=== PATIENT | female | born 1940 | race Caucasian/White ===

== ENCOUNTER → 2018-04-03 08:44 | Outpatient (CLI) | payer OTHER, MEDICARE, SELFPAY | PROVIDERS: Family Provider Family Medicine; PCP Family Medicine; Visit Provider Internal Medicine | DX: L59.8 Other specified disorders of the skin and subcutaneous tissue related to radiation (principal); L97.822 Non-pressure chronic ulcer of other part of left lower leg with fat layer exposed; S81.801A Unspecified open wound, right lower leg, initial encounter; I87.323 Chronic venous hypertension (idiopathic) with inflammation of bilateral lower extremity | CPT/HCPCS: 11042 ==

== ENCOUNTER → 2018-04-10 08:52 | Outpatient (CLI) | payer OTHER, SELFPAY | PROVIDERS: Family Provider Family Medicine; PCP Family Medicine; Visit Provider Internal Medicine | DX: L59.8 Other specified disorders of the skin and subcutaneous tissue related to radiation (principal); L97.822 Non-pressure chronic ulcer of other part of left lower leg with fat layer exposed; S81.801D Unspecified open wound, right lower leg, subsequent encounter; I87.323 Chronic venous hypertension (idiopathic) with inflammation of bilateral lower extremity | CPT/HCPCS: 11042 ==

== ENCOUNTER → 2018-04-10 14:11 | Outpatient (REF) | payer OTHER, SELFPAY | LOC: LAB 14:11 | PROVIDERS: Family Provider Family Medicine; PCP Family Medicine; Visit Provider Internal Medicine | DX: L08.9 Local infection of the skin and subcutaneous tissue, unspecified (principal) | CPT/HCPCS: 87070; 87077; 87186; 87205 ==

== ENCOUNTER → 2018-04-17 10:12 | Outpatient (CLI) | payer OTHER, SELFPAY | PROVIDERS: Family Provider Family Medicine; PCP Family Medicine; Visit Provider Internal Medicine | DX: L59.8 Other specified disorders of the skin and subcutaneous tissue related to radiation (principal); L97.822 Non-pressure chronic ulcer of other part of left lower leg with fat layer exposed; S81.801A Unspecified open wound, right lower leg, initial encounter; L03.116 Cellulitis of left lower limb | CPT/HCPCS: 11042 ==

== ENCOUNTER → 2018-04-24 08:46 | Outpatient (CLI) | payer OTHER, SELFPAY | PROVIDERS: Family Provider Family Medicine; PCP Family Medicine; Visit Provider Internal Medicine | DX: L59.8 Other specified disorders of the skin and subcutaneous tissue related to radiation (principal); L97.822 Non-pressure chronic ulcer of other part of left lower leg with fat layer exposed; L03.116 Cellulitis of left lower limb | CPT/HCPCS: 11042; 87070; 87075; 87077; 87147; 87186; 87205 ==

== ENCOUNTER → 2018-04-30 11:02 | Outpatient (CLI) | payer MEDICARE, OTHER, SELFPAY ==
--- NOTE | 2018-04-30 | OV.WND_ITS ---
Progress Note Details Patient Name: Paulina Troncoso Patient Number: [id number] PatientPatientDate: 04/30/2018 Clinician: Dannielle Galdamez Clinician Cosigner: Dorie Moyer Physician / Criminal Justice Professor: Anselmo Saxena SUBJECTIVE Chief Complaint This information was obtained from the patient Radiation wound to left leg. Second biopsy on left leg, now open wound Allergies NKDA HPI This information was obtained from the patient 04/30/18. Seen by Dr. Saxena. 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 Her wound culture grew MSSA and she reports significant diarrhea since starting the antibiotic. She does not report increased drainage from the ulcer. We had also planned to place a Grafix biologic skin substitute today if the infection appears to be resolved. 04/24/18. Seen by Dr. Saxena. 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 She does not report increased drainage however nor fevers or feeling unwell in general. 04/17/18. Seen by Dr. Saxena. 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 She does not report acute changes regarding the left lateral lower leg nor right lower leg venous ulcers. She also reports some increased swelling of the left lower leg but no fevers or feeling unwell in general. Her wound culture from last week grew pansensitive MSSA. 04/10/18. Seen by Dr. Saxena. The patient does not report increased drainage or pain associated with the left anterior lower leg soft tissue radiation ulcer, left lower lateral leg venous ulcer, nor right lower leg trauma wound since her last visit. 04/03/18. Seen by Dr. Saxena. The patient does not report increased drainage or pain associated with the left anterior lower leg soft tissue radiation ulcer, left lower lateral leg venous ulcer, nor right lower leg trauma wound since her last visit. 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 03/27/2018. Seen by Dr. Saxena. The patient reports a new trauma wound over the lateral left lower leg that occurred sometime in the last week but she is unsure of the mode of injury. She states its painful as well. 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 Of note, she stands for extended periods at work and wears a compression stocking on the left leg but not on the right. 03/20/18. Seen by Dr. Saxena. The patient reports some foul odor associated with the wound VAC dressing and had removed is about 2 days ago. 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 03/13/18. Seen by Dr. Saxena. 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 03/06/18. Seen by Dr. Saxena. 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 She does not report pain or increased drainage from the site nor adverse side effects from the antibiotics. 02/27/18. Seen by Dr. Saxena. 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 She does not report pain at the site nor fevers. 02/20/18. Dr. Saxena. 02/20/18. Seen by Dr. Saxena. The patient reports increased swelling and recurrence of erythema in the left lower leg soft tissue radiation ministerio-ulcer area. She doesn't report fevers or feeling unwell and completed a course of Augmentin recently that caused her to have significant GI symptoms. The patient is also scrubbing the site with soap in the shower despite our recommendations to not do so. 02/13/18. Seen by LAURA Daigle. The patient reports no increased drainage or pain to left lower leg soft tissue radiation ulcer. She was prescribed Augmentin for MSSA and Enterococcus faecalis positive wound culture and will complete this course tomorrow. 02/06/18. Seen by Dr. Saxena. The patient feels the left lower leg soft tissue radiation ulcer has stopped increasing in size since last week and since starting on Bactrim. She also feels the periulcer erythema and drainage have decreased. Her wound culture from last week grew MSSA and Enterococcus faecalis. She does not report adverse side effects of the antibiotics nor fevers or feeling unwell in general. 01/30/18. Seen by Fede Lyn PA-C. The patient reports that her ulcer became significantly larger 1-2 days after her last appointment. She was concerned it was a reaction to Medihoney and discontinued using it, and applied gentamicin instead. 01/20/18. Seen by Fede Lyn PA-C. The patient reports no increase in drainage from her radiation ulcer of the left lower leg. 01/01/18. Seen by Dr. Saxena. 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 12/16/17. Seen by Dr. Saxena. 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 11/28/17. Seen by Dr. Saxena. 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 11/21/17. Seen by Dr. Saxena. 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 She completed her course of Bactrim and continues to use topical gentamicin which is treating the Acinetobacter and MSSA positive wound culture. 11/07/17. Seen by Dr. Saxena. The patient reports significant improvement in terms of the left leg pain and drainage associated with the cellulitis and soft tissue radiation ulcer. She's completed a course of Bactrim and does not report adverse side effects 10/30/17. Seen by Dr. Saxena. The patient reports a significant improvement in terms of the left lower leg pain and drainage from the soft tissue radiation ulcer and surrounding cellulitis since starting on Bactrim for the recently cultured Acinetobacter and Staph positive wound culture. She does not report adverse side effects nor fevers or feeling unwell in general. 10/25/17. Seen by Dr. Saxena. The patient is new to our clinic and presents with a left lower leg non-healing radiation ulcer following treatment for a basal cell carcinoma in July. She reports continued burning and stinging of the ulcer as well as a painful circumferential rash around the leg with heavy drainage from the medial aspect. She was placed on Keflex 3 days ago and feels it may have been some modest improvement in terms of symptoms over the drainage continues to be significant. The leg is chronically swollen and she is trying to wear compression stockings however this is been difficult due to the discomfort. Past Medical History This information was obtained from the patient Patient has a medical history of: Knee replacement (bilateral) Basal cell carcinoma (right lower leg; 07/2017) Squamous cell carcinoma Chronic venous hypertension (bilateral; w/ inflammation) Complaints and Symptoms This information was obtained from the patient Patient complains of: General Notes: I have reviewed and concur with the Review of Systems and Past Family Social History documents completed by the clinician, I have reviewed and concur with the Wound Assessment document completed by the clinician Allergic/Immunologic: Frequent Rashes Integumentary (Hair/Skin/Nails): Open Sore Neurological: Loss of Protective Sensation Prior Wound History: Drainage, Erythema Patient denies complaints or symptoms related to: Cardiovascular (Central): Irregular heart beat Cardiovascular (Central/Peripheral): Intermittent Claudication Constitutional Symptoms (General Health): Chills, Fever Ear/Nose/Mouth/Throat: Hearing Loss / Aid Gastrointestinal (GI): Stomach/abdominal pain Hematologic/Lymphatic: Bleeding / Clotting Disorders, Bleeding Tendency Musculoskeletal: Assistive Devices Prior Wound History: Bleeding, Pain Psychiatric: Memory Loss Respiratory: Oxygen Use, Shortness of Breath OBJECTIVE Constitutional Vital signs reviewed and noted. Well developed. Alert. Clean appearing.. Height/ Length: 63 in (160.02 cm), Weight: 242.3 lbs (110.14 kgs), BMI: 42.9, Temperature: 97.6 ?F ( 36.44 ?C), Respiratory Rate: 18 breaths/min. Ears, Nose, Mouth, and Throat: No clinically significant hearing loss on informal examination. Respiratory: No respiratory distress. Even respirations and without use of accessory muscles.. Cardiovascular: Pedal pulses 2+ on affected limb. 2+ left lower extremity edema. Gastrointestinal (GI): Obese. Nondistended.. Integumentary (Hair, Skin) Moderate periwound erythema with warmth. Refer to appropriate clinician wound documentation for this visit; left lower leg ulcer extends to subcut with base minimally covered with pink granulation, remainder fibrin and wet slough. Wound #1 Left, Medial Leg is an acute Full Thickness Radiation Wound and has received a status of Not Healed. Subsequent wound encounter measurements are 3.6cm length x 5cm width x 0.2cm depth, with an area of 18 sq cm and a volume of 3.6 cubic cm. No tunneling has been noted. No sinus tract has been noted. No undermining has been noted. There is a moderate amount of serous drainage noted which has no odor. The patient reports a wound pain of level 0/10. The wound margin is regular. Wound bed has No epithelialization, No eschar, Yes slough, Yes bright red, firm granulation. The periwound skin exhibited: Edema, Moist, Erythema. The periwound skin did not exhibit: Brawny Induration, Excoriation, Induration, Callus, Crepitus, Fluctuance, Friable, Rash, Dry/Scaly, Maceration, Atrophie Viridiana, Cyanosis, Ecchymosis, Hemosiderosis, Pallor, Rubor. The temperature of the periwound skin is Warm. Periwound skin presents with s/s of infection. Confirmation Description and Treatment Plan is: Signs and Symptoms Present, Confirmed Local, Systemic Antibiotics Prescribed. Local Pulse is Palpable. Neurological: Cranial nerves grossly intact with symmetric function normal by informal observation.. ASSESSMENT Active Problems ICD-10 (Encounter Diagnosis) L59.8 - Other specified disorders of the skin and subcutaneous tissue related to radiation (Encounter Diagnosis) L97.822 - Non-pressure chronic ulcer of other part of left lower leg with fat layer exposed (Encounter Diagnosis) L03.116 - Cellulitis of left lower limb PROCEDURES Wound #1 Wound #1 (Radiation Wound) is located on the left, medial leg. A skin/ subcutaneous tissue level surgical debridement with a total area debrided of 18 sq cm was performed by Anselmo Saxena MD. Subcutaneous was removed along with devitalized tissue: exudate and slough. The following instrument(s) were used: curette. Pain control was achieved using 4% Lido. A time out was conducted prior to the start of the procedure. A minimal amount of bleeding was controlled with n/a. The procedure was tolerated well with a pain level of 0 throughout and a pain level of 0 following the procedure. Post Debridement Measurements: 3.6cm length x 5cm width x 0.3cm depth; with an area of 18 sq cm and a volume of 5.4 cubic cm; Additional Information Muscle fascia or bone removed and sent to pathology?: No PLAN Wound Orders: Wound #1 Left, Medial Leg Cleanser Cleanse Wound: May Shower. - Keep dressings dry. Topical Treatments Antibiotic/Antimicrobial Ointment/Cream. - Gentamicin to wound bed. Dressings Primary dressing: - Aquacel ag, Foam Cover and secure with: - conform gauze Change Dressing: - Every day. Compression/Edema Control Elevation of leg(s) above the level of the heart when sitting. Multi Layer Wrap: - Do not get leg(s) with compression wrap wet. If wraps are too tight call the wound care center or remove if you are unable to reach the center. Please remove wraps for numbness, tingling, pain in legs or color changes in toes and call the clinic the same day. If symptoms do not resolve after removing wraps please go to the ER for evaluation. Local pharmacies carry plastic cast protectors that may be used for protection while showering. Follow-Up Appointments Return Appointment: - - In one week Scribing Attestation I attest, as the nurse, that I scribed these orders for the physician. Laboratory: Bacteria identified in Wound by Culture General Notes: Please package pick up new antibiotic and take as prescribed. Please stop Augmentin. I've reviewed the clinician's documentation and agree with the evaluation and plan as written. In addition, the patient's ulcer demonstrates evidence of non-viable devitalized tissue which will continue to benefit from sharp debridement to help promote granulation and expedite healing. Also, due to the patient's diarrhea since starting Augmentin, and the persistence of the left lower leg cellulitis, I've changed her to levofloxacin and repeated a wound culture. Also, as the ulcer is making only very modest progress over the past 2 months I'm going to refer her to plastic surgery for a second opinion and consideration of placing a skin graft. We've also started compression therapy with a Coban wrap to treat chronic venous hypertension in the leg. Electronic Signature(s) Signed By: Date: Anselmo Saxena MD 04/30/2018 15:30:00 Entered By: Anselmo Saxena on 04/30/2018 15:26:50
== END ==
PROVIDERS: Family Provider Family Medicine; PCP Family Medicine; Visit Provider Internal Medicine
DX: L59.8 Other specified disorders of the skin and subcutaneous tissue related to radiation (principal); L97.822 Non-pressure chronic ulcer of other part of left lower leg with fat layer exposed; L03.116 Cellulitis of left lower limb; I87.312 Chronic venous hypertension (idiopathic) with ulcer of left lower extremity
CPT/HCPCS: 11042

== ENCOUNTER → 2018-04-30 15:16 | Outpatient (REF) | payer OTHER, SELFPAY | LOC: LAB 15:16 | PROVIDERS: Family Provider Family Medicine; PCP Family Medicine; Visit Provider Internal Medicine | DX: L08.89 Other specified local infections of the skin and subcutaneous tissue (principal) | CPT/HCPCS: 87070; 87075; 87077; 87186; 87205 ==

== ENCOUNTER → 2018-05-02 09:17 | Outpatient (CLI) | payer MEDICARE, OTHER, SELFPAY ==
--- NOTE | 2018-05-02 | OV.WND_ITS ---
Progress Note Details Patient Name: Paulina Troncoso Patient Number: [id number] PatientPatientDate: 05/02/2018 Clinician: Dannielle Galdamez Clinician Cosigner: Dorie Moyer Physician / Associate Program Manager: Anselmo Saxena SUBJECTIVE Chief Complaint This information was obtained from the patient Radiation wound to left leg. Second biopsy on left leg, now open wound Allergies NKDA HPI This information was obtained from the patient 05/02/18. Seen by Dr. Saxena. 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 She's also now on levofloxacin for the coag negative Staph wound culture and associated cellulitis and no longer reports pain at the ulcer site. Of note, she's now complaining of acute distal left 3rd finger pain along with swelling and redness that started yesterday despite being on levofloxacin. She does not have a history of gout but does work with her hands outside regularly. 04/30/18. Seen by Dr. Saxena. 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 Her wound culture grew MSSA and she reports significant diarrhea since starting the antibiotic. She does not report increased drainage from the ulcer. We had also planned to place a Grafix biologic skin substitute today if the infection appears to be resolved. 04/24/18. Seen by Dr. Saxena. 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 She does not report increased drainage however nor fevers or feeling unwell in general. 04/17/18. Seen by Dr. Saxena. 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 She does not report acute changes regarding the left lateral lower leg nor right lower leg venous ulcers. She also reports some increased swelling of the left lower leg but no fevers or feeling unwell in general. Her wound culture from last week grew pansensitive MSSA. 04/10/18. Seen by Dr. Saxena. The patient does not report increased drainage or pain associated with the left anterior lower leg soft tissue radiation ulcer, left lower lateral leg venous ulcer, nor right lower leg trauma wound since her last visit. 04/03/18. Seen by Dr. Saxena. The patient does not report increased drainage or pain associated with the left anterior lower leg soft tissue radiation ulcer, left lower lateral leg venous ulcer, nor right lower leg trauma wound since her last visit. 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 03/27/2018. Seen by Dr. Saxena. The patient reports a new trauma wound over the lateral left lower leg that occurred sometime in the last week but she is unsure of the mode of injury. She states its painful as well. 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 Of note, she stands for extended periods at work and wears a compression stocking on the left leg but not on the right. 03/20/18. Seen by Dr. Saxena. The patient reports some foul odor associated with the wound VAC dressing and had removed is about 2 days ago. 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 03/13/18. Seen by Dr. Saxena. 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 03/06/18. Seen by Dr. Saxena. 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 She does not report pain or increased drainage from the site nor adverse side effects from the antibiotics. 02/27/18. Seen by Dr. Saxena. 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 She does not report pain at the site nor fevers. 02/20/18. Dr. Saxena. 02/20/18. Seen by Dr. Saxena. The patient reports increased swelling and recurrence of erythema in the left lower leg soft tissue radiation ministerio-ulcer area. She doesn't report fevers or feeling unwell and completed a course of Augmentin recently that caused her to have significant GI symptoms. The patient is also scrubbing the site with soap in the shower despite our recommendations to not do so. 02/13/18. Seen by LAURA Daigle. The patient reports no increased drainage or pain to left lower leg soft tissue radiation ulcer. She was prescribed Augmentin for MSSA and Enterococcus faecalis positive wound culture and will complete this course tomorrow. 02/06/18. Seen by Dr. Saxena. The patient feels the left lower leg soft tissue radiation ulcer has stopped increasing in size since last week and since starting on Bactrim. She also feels the periulcer erythema and drainage have decreased. Her wound culture from last week grew MSSA and Enterococcus faecalis. She does not report adverse side effects of the antibiotics nor fevers or feeling unwell in general. 01/30/18. Seen by Fede Lyn PA-C. The patient reports that her ulcer became significantly larger 1-2 days after her last appointment. She was concerned it was a reaction to Medihoney and discontinued using it, and applied gentamicin instead. 01/20/18. Seen by Fede Lyn PA-C. The patient reports no increase in drainage from her radiation ulcer of the left lower leg. 01/01/18. Seen by Dr. Saxena. 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 12/16/17. Seen by Dr. Saxena. 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 11/28/17. Seen by Dr. Saxena. 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 11/21/17. Seen by Dr. Saxena. 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 She completed her course of Bactrim and continues to use topical gentamicin which is treating the Acinetobacter and MSSA positive wound culture. 11/07/17. Seen by Dr. Saxena. The patient reports significant improvement in terms of the left leg pain and drainage associated with the cellulitis and soft tissue radiation ulcer. She's completed a course of Bactrim and does not report adverse side effects 10/30/17. Seen by Dr. Saxena. The patient reports a significant improvement in terms of the left lower leg pain and drainage from the soft tissue radiation ulcer and surrounding cellulitis since starting on Bactrim for the recently cultured Acinetobacter and Staph positive wound culture. She does not report adverse side effects nor fevers or feeling unwell in general. 10/25/17. Seen by Dr. Saxena. The patient is new to our clinic and presents with a left lower leg non-healing radiation ulcer following treatment for a basal cell carcinoma in July. She reports continued burning and stinging of the ulcer as well as a painful circumferential rash around the leg with heavy drainage from the medial aspect. She was placed on Keflex 3 days ago and feels it may have been some modest improvement in terms of symptoms over the drainage continues to be significant. The leg is chronically swollen and she is trying to wear compression stockings however this is been difficult due to the discomfort. Past Medical History This information was obtained from the patient Patient has a medical history of: Knee replacement (bilateral) Basal cell carcinoma (right lower leg; 07/2017) Squamous cell carcinoma Chronic venous hypertension (bilateral; w/ inflammation) Complaints and Symptoms This information was obtained from the patient Patient complains of: General Notes: I have reviewed and concur with the Review of Systems and Past Family Social History documents completed by the clinician, I have reviewed and concur with the Wound Assessment document completed by the clinician Allergic/Immunologic: Frequent Rashes Integumentary (Hair/Skin/Nails): Open Sore Neurological: Loss of Protective Sensation Prior Wound History: Drainage, Erythema Patient denies complaints or symptoms related to: Cardiovascular (Central): Irregular heart beat Cardiovascular (Central/Peripheral): Intermittent Claudication Constitutional Symptoms (General Health): Chills, Fever Ear/Nose/Mouth/Throat: Hearing Loss / Aid Gastrointestinal (GI): Stomach/abdominal pain Hematologic/Lymphatic: Bleeding / Clotting Disorders, Bleeding Tendency Musculoskeletal: Assistive Devices Prior Wound History: Bleeding, Pain Psychiatric: Memory Loss Respiratory: Oxygen Use, Shortness of Breath OBJECTIVE Constitutional BP elevated; Afebrile; Alert and in no distress. Well developed. Alert. Clean appearing.. Height/Length: 63 in (160.02 cm), Weight: 241.3 lbs (109.68 kgs), BMI: 42.7, Temperature: 97.4 ?F (36.33 ?C), Pulse: 69 bpm, Respiratory Rate: 18 breaths/min, Blood Pressure: 153/79 mmHg, Pulse Oximetry: 100 %. Ears, Nose, Mouth, and Throat: No clinically significant hearing loss on informal examination. Respiratory: No respiratory distress. Even respirations and without use of accessory muscles.. Cardiovascular: 1+ left lower extremity edema; improved from last visit. Gastrointestinal (GI): Obese. Nondistended.. Integumentary (Hair, Skin) Mild periwound erythema with warmth; improved from last visit. Refer to appropriate clinician wound documentation for this visit; left lower leg ulcer extends to subcut with base minimally covered with pink granulation, remainder fibrin and slough. Wound #1 Left, Medial Leg is an acute Full Thickness Radiation Wound and has received a status of Not Healed. Subsequent wound encounter measurements are 3.8cm length x 4.7cm width x 0.3cm depth, with an area of 17.86 sq cm and a volume of 5.358 cubic cm. No tunneling has been noted. No sinus tract has been noted. No undermining has been noted. There is a moderate amount of serous drainage noted which has no odor. The patient reports a wound pain of level 0/10. The wound margin is regular. Wound bed has No epithelialization, No eschar, Yes slough, Yes bright red, firm granulation. The periwound skin exhibited: Edema, Moist, Erythema. The periwound skin did not exhibit: Brawny Induration, Excoriation, Induration, Callus, Crepitus, Fluctuance, Friable, Rash, Dry/Scaly, Maceration, Atrophie Viridiana, Cyanosis, Ecchymosis, Hemosiderosis, Pallor, Rubor. The temperature of the periwound skin is Warm. Periwound skin presents with s/s of infection. Confirmation Description and Treatment Plan is: Signs and Symptoms Present, Confirmed Local, Systemic Antibiotics Prescribed. Local Pulse is Palpable. Neurological: Cranial nerves grossly intact with symmetric function normal by informal observation.. All Other Systems Left 3rd finger DIP joint warm, erythematous, swollen, and tender. ASSESSMENT Active Problems ICD-10 (Encounter Diagnosis) L59.8 - Other specified disorders of the skin and subcutaneous tissue related to radiation (Encounter Diagnosis) L97.822 - Non-pressure chronic ulcer of other part of left lower leg with fat layer exposed (Encounter Diagnosis) L03.116 - Cellulitis of left lower limb (Encounter Diagnosis) L03.012 - Cellulitis of left finger (Encounter Diagnosis) I87.312 - Chronic venous hypertension (idiopathic) with ulcer of left lower extremity PROCEDURES Wound #1 Wound #1 (Radiation Wound) is located on the left, medial leg. A skin/ subcutaneous tissue level surgical debridement with a total area debrided of 17.86 sq cm was performed by Anselmo Saxena MD. Subcutaneous was removed along with devitalized tissue: slough. The following instrument(s) were used: curette, forceps, and scissors. Pain control was achieved using 4% Lido. A time out was conducted prior to the start of the procedure. A minimal amount of bleeding was controlled with n/a. The procedure was tolerated well with a pain level of 0 throughout and a pain level of 0 following the procedure. Post Debridement Measurements: 3.8cm length x 4.7cm width x 0.4cm depth; with an area of 17.86 sq cm and a volume of 7.144 cubic cm; Wound #1 (Radiation Wound) is located on the left, medial leg. A Multilayer Compression procedure was performed by Dannielle Galdamez RN. General Notes: Harry 2 Additional Information Muscle fascia or bone removed and sent to pathology?: No PLAN Wound Orders: Wound #1 Left, Medial Leg Cleanser Cleanse Wound: March Shower. - Keep dressings dry. Topical Treatments Antibiotic/Antimicrobial Ointment/Cream. - Gentamicin to wound bed. Dressings Primary dressing: - Aquacel ag, Foam Change Dressing: - At next visit Compression/Edema Control Elevation of leg(s) above the level of the heart when sitting. Multi Layer Wrap: Follow-Up Appointments Return Appointment: - - Saturday Scribing Attestation I attest, as the nurse, that I scribed these orders for the physician. 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 Please stop Levaquin. I've reviewed the clinician's documentation and agree with the evaluation and plan as written. In addition, the patient's ulcer demonstrates evidence of non-viable devitalized tissue which will continue to benefit from sharp debridement to help promote granulation and expedite healing. Also, the left lower leg cellulitis is improving and she'll continue on antibiotics plus compression therapy with the Coban wrap. I've changed her from levofloxacin however to clindamycin which may be more effective in regards to the left 3rd finger cellulitis. I've advised her also to liaise with her PCP if this finger pain and erythema do not resolve as this may be due to gout or a reactive arthritis as opposed to infection. Electronic Signature(s) Signed By: Date: Anselmo Saxena MD 05/04/2018 14:27:05 Entered By: Anselmo Saxena on 05/02/2018 12:47:40
== END ==
PROVIDERS: Family Provider Family Medicine; PCP Family Medicine; Visit Provider Internal Medicine
DX: L59.8 Other specified disorders of the skin and subcutaneous tissue related to radiation (principal); I87.312 Chronic venous hypertension (idiopathic) with ulcer of left lower extremity; L97.822 Non-pressure chronic ulcer of other part of left lower leg with fat layer exposed; L03.116 Cellulitis of left lower limb; L03.012 Cellulitis of left finger
CPT/HCPCS: 11042

== ENCOUNTER → 2018-05-09 09:41 | Outpatient (CLI) | payer OTHER, SELFPAY ==
--- NOTE | 2018-05-09 | OV.WND_ITS ---
Progress Note Details Patient Name: Paulina Troncoso Patient Number: [id number] PatientPatientDate: 05/09/2018 Clinician: Dorie Moyer Clinician Cosigner: Julia Alva Physician / Acoustical Carpenter: John Lyn SUBJECTIVE Chief Complaint This information was obtained from the patient Radiation wound to left leg. Second biopsy on left leg, now open wound Allergies NKDA HPI This information was obtained from the patient 05/09/18. Seen by Fede Lyn PA-C. The patient reports no increase in drainage or pain from her left lower leg ulcer. She is on clindamycin for an infection of this ulcer. 05/02/18. Seen by Dr. Saxena. 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 She's also now on levofloxacin for the coag negative Staph wound culture and associated cellulitis and no longer reports pain at the ulcer site. Of note, she's now complaining of acute distal left 3rd finger pain along with swelling and redness that started yesterday despite being on levofloxacin. She does not have a history of gout but does work with her hands outside regularly. 04/30/18. Seen by Dr. Saxena. 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 Her wound culture grew MSSA and she reports significant diarrhea since starting the antibiotic. She does not report increased drainage from the ulcer. We had also planned to place a Grafix biologic skin substitute today if the infection appears to be resolved. 04/24/18. Seen by Dr. Saxena. 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 She does not report increased drainage however nor fevers or feeling unwell in general. 04/17/18. Seen by Dr. Saxena. 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 She does not report acute changes regarding the left lateral lower leg nor right lower leg venous ulcers. She also reports some increased swelling of the left lower leg but no fevers or feeling unwell in general. Her wound culture from last week grew pansensitive MSSA. 04/10/18. Seen by Dr. Saxena. The patient does not report increased drainage or pain associated with the left anterior lower leg soft tissue radiation ulcer, left lower lateral leg venous ulcer, nor right lower leg trauma wound since her last visit. 04/03/18. Seen by Dr. Saxena. The patient does not report increased drainage or pain associated with the left anterior lower leg soft tissue radiation ulcer, left lower lateral leg venous ulcer, nor right lower leg trauma wound since her last visit. 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 03/27/2018. Seen by Dr. Saxena. The patient reports a new trauma wound over the lateral left lower leg that occurred sometime in the last week but she is unsure of the mode of injury. She states its painful as well. 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 Of note, she stands for extended periods at work and wears a compression stocking on the left leg but not on the right. 03/20/18. Seen by Dr. Saxena. The patient reports some foul odor associated with the wound VAC dressing and had removed is about 2 days ago. 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 03/13/18. Seen by Dr. Saxena. 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 03/06/18. Seen by Dr. Saxena. 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 She does not report pain or increased drainage from the site nor adverse side effects from the antibiotics. 02/27/18. Seen by Dr. Saxena. 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 She does not report pain at the site nor fevers. 02/20/18. Dr. Saxena. 02/20/18. Seen by Dr. Saxena. The patient reports increased swelling and recurrence of erythema in the left lower leg soft tissue radiation ministerio-ulcer area. She doesn't report fevers or feeling unwell and completed a course of Augmentin recently that caused her to have significant GI symptoms. The patient is also scrubbing the site with soap in the shower despite our recommendations to not do so. 02/13/18. Seen by LAURA Daigle. The patient reports no increased drainage or pain to left lower leg soft tissue radiation ulcer. She was prescribed Augmentin for MSSA and Enterococcus faecalis positive wound culture and will complete this course tomorrow. 02/06/18. Seen by Dr. Saxena. The patient feels the left lower leg soft tissue radiation ulcer has stopped increasing in size since last week and since starting on Bactrim. She also feels the periulcer erythema and drainage have decreased. Her wound culture from last week grew MSSA and Enterococcus faecalis. She does not report adverse side effects of the antibiotics nor fevers or feeling unwell in general. 01/30/18. Seen by Fede Lyn PA-C. The patient reports that her ulcer became significantly larger 1-2 days after her last appointment. She was concerned it was a reaction to Medihoney and discontinued using it, and applied gentamicin instead. 01/20/18. Seen by Fede Lyn PA-C. The patient reports no increase in drainage from her radiation ulcer of the left lower leg. 01/01/18. Seen by Dr. Saxena. 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 12/16/17. Seen by Dr. Saxena. 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 11/28/17. Seen by Dr. Saxena. 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 11/21/17. Seen by Dr. Saxena. 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 She completed her course of Bactrim and continues to use topical gentamicin which is treating the Acinetobacter and MSSA positive wound culture. 11/07/17. Seen by Dr. Saxena. The patient reports significant improvement in terms of the left leg pain and drainage associated with the cellulitis and soft tissue radiation ulcer. She's completed a course of Bactrim and does not report adverse side effects 10/30/17. Seen by Dr. Saxena. The patient reports a significant improvement in terms of the left lower leg pain and drainage from the soft tissue radiation ulcer and surrounding cellulitis since starting on Bactrim for the recently cultured Acinetobacter and Staph positive wound culture. She does not report adverse side effects nor fevers or feeling unwell in general. 10/25/17. Seen by Dr. Saxena. The patient is new to our clinic and presents with a left lower leg non-healing radiation ulcer following treatment for a basal cell carcinoma in July. She reports continued burning and stinging of the ulcer as well as a painful circumferential rash around the leg with heavy drainage from the medial aspect. She was placed on Keflex 3 days ago and feels it may have been some modest improvement in terms of symptoms over the drainage continues to be significant. The leg is chronically swollen and she is trying to wear compression stockings however this is been difficult due to the discomfort. Family History This information was obtained from the patient Diabetes - Maternal Grandparents, Heart Disease - Father, Kidney Disease - Maternal Grandparents, Stroke - Father Social History This information was obtained from the patient Alcohol Use - 1 PER WEEK, Caffeine Use - POP AND TEA, Lives in - OWN HOME, Marital Status - , Object to Blood Products - NONE, Retired Past Medical History This information was obtained from the patient Patient has a medical history of: Knee replacement (bilateral) Basal cell carcinoma (right lower leg; 07/2017) Squamous cell carcinoma Chronic venous hypertension (bilateral; w/ inflammation) Complaints and Symptoms This information was obtained from the patient Patient complains of: General Notes: I have reviewed and concur with the Review of Systems and Past Family Social History documents completed by the clinician, I have reviewed and concur with the Wound Assessment document completed by the clinician Allergic/Immunologic: Frequent Rashes Integumentary (Hair/Skin/Nails): Open Sore Neurological: Loss of Protective Sensation Prior Wound History: Drainage, Erythema Patient denies complaints or symptoms related to: Cardiovascular (Central): Irregular heart beat Cardiovascular (Central/Peripheral): Intermittent Claudication Constitutional Symptoms (General Health): Chills, Fever Ear/Nose/Mouth/Throat: Hearing Loss / Aid Gastrointestinal (GI): Stomach/abdominal pain Hematologic/Lymphatic: Bleeding / Clotting Disorders, Bleeding Tendency Musculoskeletal: Assistive Devices Prior Wound History: Bleeding, Pain Psychiatric: Memory Loss Respiratory: Oxygen Use, Shortness of Breath OBJECTIVE Constitutional Vital signs reviewed and noted. Well developed, lucid, and in no acute distress. . Height/Length: 63 in (160.02 cm), Weight: 242.8 lbs (110.36 kgs), BMI: 43, Temperature: 97..5 ?FPulse: 63 bpm, Respiratory Rate: 18 breaths/min, Pulse Oximetry: 100 %. Eyes: Conjunctiva clear and without icterus. Pupils are equal and round; EOM's intact. Ears, Nose, Mouth, and Throat: Grossly intact. Respiratory: No respiratory distress. Even respirations and without use of accessory muscles.. Gastrointestinal (GI): Obese. Nondistended.. Integumentary (Hair, Skin) Refer to appropriate clinician wound documentation for this visit; ulcer extends to subcutaneous fat layer. . Wound #1 Left, Medial Leg is an acute Full Thickness Radiation Wound and has received a status of Not Healed. Subsequent wound encounter measurements are 3.5cm length x 4.5cm width x 0.3cm depth, with an area of 15.75 sq cm and a volume of 4.725 cubic cm. No tunneling has been noted. No sinus tract has been noted. No undermining has been noted. There is a moderate amount of serous drainage noted which has no odor. The patient reports a wound pain of level 0/10. The wound margin is regular. Wound bed has No epithelialization, No eschar, Yes slough, Yes bright red, firm granulation. The periwound skin exhibited: Edema, Moist, Erythema. The periwound skin did not exhibit: Brawny Induration, Excoriation, Induration, Callus, Crepitus, Fluctuance, Friable, Rash, Dry/Scaly, Maceration, Atrophie Panola, Cyanosis, Ecchymosis, Hemosiderosis, Pallor, Rubor. The temperature of the periwound skin is Warm. Periwound skin presents with s/s of infection. Confirmation Description and Treatment Plan is: Confirmed Local, Systemic Antibiotics Prescribed. Local Pulse is Palpable. Psychiatric: Judgement and insight: Normal affect with normal thought pattern. Alert and oriented 3/3. Memory grossly intact.. Normal affect. Mood appropriate.. ASSESSMENT Active Problems ICD-10 (Encounter Diagnosis) L59.8 - Other specified disorders of the skin and subcutaneous tissue related to radiation (Encounter Diagnosis) L97.822 - Non-pressure chronic ulcer of other part of left lower leg with fat layer exposed (Encounter Diagnosis) L03.116 - Cellulitis of left lower limb (Encounter Diagnosis) I87.312 - Chronic venous hypertension (idiopathic) with ulcer of left lower extremity PROCEDURES Wound #1 Wound #1 (Radiation Wound) is located on the left, medial leg. A skin/ subcutaneous tissue level surgical debridement with a total area debrided of 16.1 sq cm was performed by John Lyn PA. Subcutaneous was removed along with devitalized tissue: slough. The following instrument(s) were used: curette. Pain control was achieved using 4% Lido. A time out was conducted prior to the start of the procedure. A minimal amount of bleeding was controlled with n/a. The procedure was tolerated well with a pain level of 0 throughout and a pain level of 0 following the procedure. Post Debridement Measurements: 3.5cm length x 4.6cm width x 0.4cm depth; with an area of 16.1 sq cm and a volume of 6.44 cubic cm; Wound #1 (Radiation Wound) is located on the left, medial leg. A Multilayer Compression procedure was performed by John Lyn PA. General Notes: Harry 2. Additional Information Muscle fascia or bone removed and sent to pathology?: No PLAN Wound Orders: Wound #1 Left, Medial Leg Cleanser Cleanse Wound: - Normal saline and gauze. May Shower. - Keep dressings dry. Dressings Primary dressing: - Aquacel ag, Foam Change Dressing: - At next visit Compression/Edema Control Elevation of leg(s) above the level of the heart when sitting. Multi Layer Wrap: Follow-Up Appointments Return Appointment: - - Saturday Scribing Attestation I attest, as the nurse, that I scribed these orders for the physician. Additional Orders: Anesthetic Topical Xylocaine to wound bed. - In clinic only. General Notes: Please finished taking your antibiotics. I've reviewed the clinician's documentation and agree with the evaluation and plan as written. In addition the patient's ulcer demonstrates evidence of non-viable devitalized tissue which benefits from sharp debridement. Separate from the need for debridement today to speed healing, the patient's infection was assessed and appears to still be active. The patient was enouraged to continue complying with the ordered antimicrobial regemin for ongoing treatment for this issue. Electronic Signature(s) Signed By: Date: Fede Lyn 05/12/2018 22:08:02 Entered By: Fede Lyn on 05/12/2018 13:44:39
== END ==
PROVIDERS: Family Provider Family Medicine; PCP Family Medicine; Visit Provider Physician Assistant
DX: L59.8 Other specified disorders of the skin and subcutaneous tissue related to radiation (principal); L97.822 Non-pressure chronic ulcer of other part of left lower leg with fat layer exposed; L03.116 Cellulitis of left lower limb; I87.312 Chronic venous hypertension (idiopathic) with ulcer of left lower extremity
CPT/HCPCS: 11042

== ENCOUNTER → 2018-05-16 09:01 | Outpatient (CLI) | payer OTHER, SELFPAY | PROVIDERS: Family Provider Family Medicine; PCP Family Medicine; Visit Provider Internal Medicine | DX: L59.8 Other specified disorders of the skin and subcutaneous tissue related to radiation (principal); I87.312 Chronic venous hypertension (idiopathic) with ulcer of left lower extremity; L97.822 Non-pressure chronic ulcer of other part of left lower leg with fat layer exposed | CPT/HCPCS: 11042 ==

== ENCOUNTER → 2018-05-23 09:13 | Outpatient (CLI) | payer OTHER, SELFPAY ==
--- NOTE | 2018-05-23 | OV.WND_ITS ---
Progress Note Details Patient Name: Paulina Troncoso Patient Number: [id number] PatientPatientDate: 05/23/2018 Clinician: Julia Alva Clinician Cosigner: Dorie Moyer Physician / Oil Lease Operator: Anselmo Saxena SUBJECTIVE Chief Complaint This information was obtained from the patient Radiation wound to left leg. Allergies MediHoney (honey) (Reaction: pain and rash) HPI This information was obtained from the patient 05/23/18. Seen by Dr. Saxena. 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 She also is scheduled to see plastic surgery next Saturday to discuss a possible skin graft. She's also again complaining of left 3rd distal finger swelling and pain which she states responded well to a short course of prednisone recently. Her PCP however is out of the office today. 05/16/18. Seen by Dr. Saxena. 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 She does not report adverse side effects from the antibiotics and states she has an appointment with plastic surgery in [place] in mid- May to evaluate for a possible skin graft. She's also tolerating compression therapy with a Coban wrap which is treating chronic venous hypertension in the leg and has been very effective over the past few weeks. She's also now on a short course of prednisone which is treating a gout flare of her hands. 05/09/18. Seen by Fede Lyn PA-C. The patient reports no increase in drainage or pain from her left lower leg ulcer. She is on clindamycin for an infection of this ulcer. 05/02/18. Seen by Dr. Saxena. 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 She's also now on levofloxacin for the coag negative Staph wound culture and associated cellulitis and no longer reports pain at the ulcer site. Of note, she's now complaining of acute distal left 3rd finger pain along with swelling and redness that started yesterday despite being on levofloxacin. She does not have a history of gout but does work with her hands outside regularly. 04/30/18. Seen by Dr. Saxena. 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 Her wound culture grew MSSA and she reports significant diarrhea since starting the antibiotic. She does not report increased drainage from the ulcer. We had also planned to place a Grafix biologic skin substitute today if the infection appears to be resolved. 04/24/18. Seen by Dr. Saxena. 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 She does not report increased drainage however nor fevers or feeling unwell in general. 04/17/18. Seen by Dr. Saxena. 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 She does not report acute changes regarding the left lateral lower leg nor right lower leg venous ulcers. She also reports some increased swelling of the left lower leg but no fevers or feeling unwell in general. Her wound culture from last week grew pansensitive MSSA. 04/10/18. Seen by Dr. Saxena. The patient does not report increased drainage or pain associated with the left anterior lower leg soft tissue radiation ulcer, left lower lateral leg venous ulcer, nor right lower leg trauma wound since her last visit. 04/03/18. Seen by Dr. Saxena. The patient does not report increased drainage or pain associated with the left anterior lower leg soft tissue radiation ulcer, left lower lateral leg venous ulcer, nor right lower leg trauma wound since her last visit. 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 03/27/2018. Seen by Dr. Saxena. The patient reports a new trauma wound over the lateral left lower leg that occurred sometime in the last week but she is unsure of the mode of injury. She states its painful as well. 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 Of note, she stands for extended periods at work and wears a compression stocking on the left leg but not on the right. 03/20/18. Seen by Dr. Saxena. The patient reports some foul odor associated with the wound VAC dressing and had removed is about 2 days ago. 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 03/13/18. Seen by Dr. Saxena. 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 03/06/18. Seen by Dr. Saxena. 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 She does not report pain or increased drainage from the site nor adverse side effects from the antibiotics. 02/27/18. Seen by Dr. Saxena. 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 She does not report pain at the site nor fevers. 02/20/18. Dr. Saxena. 02/20/18. Seen by Dr. Saxena. The patient reports increased swelling and recurrence of erythema in the left lower leg soft tissue radiation ministerio-ulcer area. She doesn't report fevers or feeling unwell and completed a course of Augmentin recently that caused her to have significant GI symptoms. The patient is also scrubbing the site with soap in the shower despite our recommendations to not do so. 02/13/18. Seen by LAURA Daigle. The patient reports no increased drainage or pain to left lower leg soft tissue radiation ulcer. She was prescribed Augmentin for MSSA and Enterococcus faecalis positive wound culture and will complete this course tomorrow. 02/06/18. Seen by Dr. Saxena. The patient feels the left lower leg soft tissue radiation ulcer has stopped increasing in size since last week and since starting on Bactrim. She also feels the periulcer erythema and drainage have decreased. Her wound culture from last week grew MSSA and Enterococcus faecalis. She does not report adverse side effects of the antibiotics nor fevers or feeling unwell in general. 01/30/18. Seen by Fede Lyn PA-C. The patient reports that her ulcer became significantly larger 1-2 days after her last appointment. She was concerned it was a reaction to Medihoney and discontinued using it, and applied gentamicin instead. 01/20/18. Seen by Fede Lyn PA-C. The patient reports no increase in drainage from her radiation ulcer of the left lower leg. 01/01/18. Seen by Dr. Saxena. 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 12/16/17. Seen by Dr. Saxena. 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 11/28/17. Seen by Dr. Saxena. 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 11/21/17. Seen by Dr. Saxena. 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 She completed her course of Bactrim and continues to use topical gentamicin which is treating the Acinetobacter and MSSA positive wound culture. 11/07/17. Seen by Dr. Saxena. The patient reports significant improvement in terms of the left leg pain and drainage associated with the cellulitis and soft tissue radiation ulcer. She's completed a course of Bactrim and does not report adverse side effects 10/30/17. Seen by Dr. Saxena. The patient reports a significant improvement in terms of the left lower leg pain and drainage from the soft tissue radiation ulcer and surrounding cellulitis since starting on Bactrim for the recently cultured Acinetobacter and Staph positive wound culture. She does not report adverse side effects nor fevers or feeling unwell in general. 10/25/17. Seen by Dr. Saxena. The patient is new to our clinic and presents with a left lower leg non-healing radiation ulcer following treatment for a basal cell carcinoma in July. She reports continued burning and stinging of the ulcer as well as a painful circumferential rash around the leg with heavy drainage from the medial aspect. She was placed on Keflex 3 days ago and feels it may have been some modest improvement in terms of symptoms over the drainage continues to be significant. The leg is chronically swollen and she is trying to wear compression stockings however this is been difficult due to the discomfort. Family History This information was obtained from the patient Diabetes - Maternal Grandparents, Heart Disease - Father, Kidney Disease - Maternal Grandparents, Stroke - Father Social History This information was obtained from the patient Alcohol Use - 1 PER WEEK, Caffeine Use - POP AND TEA, Lives in - OWN HOME, Marital Status - , Object to Blood Products - NONE, Retired Past Medical History This information was obtained from the patient Patient has a medical history of: Knee replacement (bilateral) Basal cell carcinoma (right lower leg; 07/2017) Squamous cell carcinoma Chronic venous hypertension (bilateral; w/ inflammation) Surgical History This information was obtained from the patient Patient has a surgical history of: KN Complaints and Symptoms This information was obtained from the patient Patient complains of: General Notes: I have reviewed and concur with the Review of Systems and Past Family Social History documents completed by the clinician, I have reviewed and concur with the Wound Assessment document completed by the clinician Allergic/Immunologic: Frequent Rashes Integumentary (Hair/Skin/Nails): Open Sore Neurological: Loss of Protective Sensation Prior Wound History: Drainage, Erythema Patient denies complaints or symptoms related to: Cardiovascular (Central): Irregular heart beat Cardiovascular (Central/Peripheral): Intermittent Claudication Constitutional Symptoms (General Health): Chills, Fever Ear/Nose/Mouth/Throat: Hearing Loss / Aid Gastrointestinal (GI): Stomach/abdominal pain Hematologic/Lymphatic: Bleeding / Clotting Disorders, Bleeding Tendency Musculoskeletal: Assistive Devices Prior Wound History: Bleeding, Pain Psychiatric: Memory Loss Respiratory: Oxygen Use, Shortness of Breath OBJECTIVE Constitutional Vital signs reviewed and noted. Well developed. Alert. Clean appearing.. Height/ Length: 63 in (160.02 cm), Weight: 238.8 lbs (108.55 kgs), BMI: 42.3, Temperature: 97.7 ?F ( 36.5 ?C), Pulse: 84 bpm, Respiratory Rate: 20 breaths/min, Pulse Oximetry: 99 %. Vital Signs Notes: Blood pressure was not taken. Patient states that [place] Respiratory: No respiratory distress. Even respirations and without use of accessory muscles.. Cardiovascular: 1+ left lower extremity edema. Integumentary (Hair, Skin) Mild periwound erythema without warmth. Refer to appropriate clinician wound documentation for this visit; left lower leg ulcer extends to subcut with base minimally covered with pink granulation, remainder fibrin and slough. Wound #1 Left, Medial Leg is an acute Full Thickness Radiation Wound and has received a status of Not Healed. Subsequent wound encounter measurements are 3.6cm length x 4.2cm width x 0.3cm depth, with an area of 15.12 sq cm and a volume of 4.536 cubic cm. No tunneling has been noted. No sinus tract has been noted. No undermining has been noted. There is a moderate amount of serous drainage noted which has no odor. The patient reports a wound pain of level 0/10. The wound margin is regular. Wound bed has No epithelialization, Yes eschar, Yes slough, Yes bright red, firm granulation. The periwound skin moisture is normal. The periwound skin exhibited: Edema, Erythema. The periwound skin did not exhibit: Brawny Induration, Excoriation, Induration, Callus, Crepitus, Fluctuance, Friable, Rash, Atrophie [place], Cyanosis, Ecchymosis, Hemosiderosis , Pallor, Rubor. The temperature of the periwound skin is Warm. Periwound skin does not exhibit signs or symptoms of infection. Local Pulse is Palpable. Neurological: Cranial nerves grossly intact with symmetric function normal by informal observation.. All Other Systems left 3rd DIP joint swollen and erythematous. ASSESSMENT Active Problems ICD-10 (Encounter Diagnosis) L59.8 - Other specified disorders of the skin and subcutaneous tissue related to radiation (Encounter Diagnosis) L97.822 - Non-pressure chronic ulcer of other part of left lower leg with fat layer exposed (Encounter Diagnosis) I87.312 - Chronic venous hypertension (idiopathic) with ulcer of left lower extremity (Encounter Diagnosis) M10.00 - Idiopathic gout, unspecified site PROCEDURES Wound #1 Wound #1 (Radiation Wound) is located on the left, medial leg. A skin/ subcutaneous tissue level surgical debridement with a total area debrided of 15.12 sq cm was performed by Anselmo Saxena MD. Subcutaneous was removed along with devitalized tissue: slough. The following instrument(s) were used: curette. Pain control was achieved using 4% Lido. A time out was conducted prior to the start of the procedure. A minimal amount of bleeding was controlled with pressure. The procedure was tolerated well with a pain level of 0 throughout and a pain level of 0 following the procedure. Post Debridement Measurements: 3.6cm length x 4.2cm width x 0.3cm depth; with an area of 15.12 sq cm and a volume of 4.536 cubic cm; Additional Information Muscle fascia or bone removed and sent to pathology?: No PLAN Wound Orders: Wound #1 Left, Medial Leg Cleanser Cleanse Wound: - In Clinic May Shower. - With Cast Boot Topical Treatments Moisturizing lotion to surround skin. Dressings Primary dressing: - Aquacel AG Cover and secure with: - Foam Compression/Edema Control Multi Layer Wrap: - Coban 2 Follow-Up Appointments Return Appointment: - - One week Scribing Attestation I attest, as the nurse, that I scribed these orders for the physician. Laboratory: Bacteria identified in Wound by Culture - Left leg woud I've reviewed the clinician's documentation and agree with the evaluation and plan as written. In addition, the patient's ulcer demonstrates evidence of non-viable devitalized tissue which will continue to benefit from sharp debridement to help promote granulation and expedite healing. Also, we'll await feedback from the plastic surgeon and she'll contact her PCP' s office to see if a refill of prednisone can be ordered to treat what appears to be gout of the left 3rd finger. I've offered to send an Rx for this if her PCP is unable to. Electronic Signature(s) Signed By: Date: Anselmo Saxena MD 05/23/2018 15:59:11 Entered By: Anselmo Saxena on 05/23/2018 14:27:01
== END ==
PROVIDERS: Family Provider Family Medicine; PCP Family Medicine; Visit Provider Internal Medicine
DX: L59.8 Other specified disorders of the skin and subcutaneous tissue related to radiation (principal); I87.312 Chronic venous hypertension (idiopathic) with ulcer of left lower extremity; L97.822 Non-pressure chronic ulcer of other part of left lower leg with fat layer exposed; M10.00 Idiopathic gout, unspecified site
CPT/HCPCS: 11042; 87070; 87075; 87077; 87186; 87205

== ENCOUNTER → 2018-05-30 09:52 | Outpatient (CLI) | payer OTHER, SELFPAY ==
--- NOTE | 2018-05-30 | OV.WND_ITS ---
Progress Note Details Patient Name: Paulina Troncoso Patient Number: [id number] PatientPatientDate: 05/30/2018 Clinician: Dorie Moyer Physician / Applications Support Lead: Anselmo Saxena SUBJECTIVE Chief Complaint This information was obtained from the patient Radiation wound to left leg. Allergies MediHoney (honey) (Reaction: pain and rash) HPI This information was obtained from the patient 05/30/18. Seen by Dr. Saxena. 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 She states there was no plan current to place a skin graft however this would be discussed at her next visit. He recent wound culture grew a resistant coag negative Staph species and she does not report pain or increased drainage at the ulcer site. 05/23/18. Seen by Dr. Saxena. 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 She also is scheduled to see plastic surgery next Saturday to discuss a possible skin graft. She's also again complaining of left 3rd distal finger swelling and pain which she states responded well to a short course of prednisone recently. Her PCP however is out of the office today. 05/16/18. Seen by Dr. Saxena. 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 She does not report adverse side effects from the antibiotics and states she has an appointment with plastic surgery in [place] in mid- May to evaluate for a possible skin graft. She's also tolerating compression therapy with a Coban wrap which is treating chronic venous hypertension in the leg and has been very effective over the past few weeks. She's also now on a short course of prednisone which is treating a gout flare of her hands. 05/09/18. Seen by Fede Lyn PA-C. The patient reports no increase in drainage or pain from her left lower leg ulcer. She is on clindamycin for an infection of this ulcer. 05/02/18. Seen by Dr. Saxena. 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 She's also now on levofloxacin for the coag negative Staph wound culture and associated cellulitis and no longer reports pain at the ulcer site. Of note, she's now complaining of acute distal left 3rd finger pain along with swelling and redness that started yesterday despite being on levofloxacin. She does not have a history of gout but does work with her hands outside regularly. 04/30/18. Seen by Dr. Saxena. 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 Her wound culture grew MSSA and she reports significant diarrhea since starting the antibiotic. She does not report increased drainage from the ulcer. We had also planned to place a Grafix biologic skin substitute today if the infection appears to be resolved. 04/24/18. Seen by Dr. Saxena. 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 She does not report increased drainage however nor fevers or feeling unwell in general. 04/17/18. Seen by Dr. Saxena. 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 She does not report acute changes regarding the left lateral lower leg nor right lower leg venous ulcers. She also reports some increased swelling of the left lower leg but no fevers or feeling unwell in general. Her wound culture from last week grew pansensitive MSSA. 04/10/18. Seen by Dr. Saxena. The patient does not report increased drainage or pain associated with the left anterior lower leg soft tissue radiation ulcer, left lower lateral leg venous ulcer, nor right lower leg trauma wound since her last visit. 04/03/18. Seen by Dr. Saxena. The patient does not report increased drainage or pain associated with the left anterior lower leg soft tissue radiation ulcer, left lower lateral leg venous ulcer, nor right lower leg trauma wound since her last visit. 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 03/27/2018. Seen by Dr. Saxena. The patient reports a new trauma wound over the lateral left lower leg that occurred sometime in the last week but she is unsure of the mode of injury. She states its painful as well. 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 Of note, she stands for extended periods at work and wears a compression stocking on the left leg but not on the right. 03/20/18. Seen by Dr. Saxena. The patient reports some foul odor associated with the wound VAC dressing and had removed is about 2 days ago. 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 03/13/18. Seen by Dr. Saxena. 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 03/06/18. Seen by Dr. Saxena. 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 She does not report pain or increased drainage from the site nor adverse side effects from the antibiotics. 02/27/18. Seen by Dr. Saxena. 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 She does not report pain at the site nor fevers. 02/20/18. Dr. Saxena. 02/20/18. Seen by Dr. Saxena. The patient reports increased swelling and recurrence of erythema in the left lower leg soft tissue radiation ministerio-ulcer area. She doesn't report fevers or feeling unwell and completed a course of Augmentin recently that caused her to have significant GI symptoms. The patient is also scrubbing the site with soap in the shower despite our recommendations to not do so. 02/13/18. Seen by LAURA Daigle. The patient reports no increased drainage or pain to left lower leg soft tissue radiation ulcer. She was prescribed Augmentin for MSSA and Enterococcus faecalis positive wound culture and will complete this course tomorrow. 02/06/18. Seen by Dr. Saxena. The patient feels the left lower leg soft tissue radiation ulcer has stopped increasing in size since last week and since starting on Bactrim. She also feels the periulcer erythema and drainage have decreased. Her wound culture from last week grew MSSA and Enterococcus faecalis. She does not report adverse side effects of the antibiotics nor fevers or feeling unwell in general. 01/30/18. Seen by Fede Lyn PA-C. The patient reports that her ulcer became significantly larger 1-2 days after her last appointment. She was concerned it was a reaction to Medihoney and discontinued using it, and applied gentamicin instead. 01/20/18. Seen by Fede Lyn PA-C. The patient reports no increase in drainage from her radiation ulcer of the left lower leg. 01/01/18. Seen by Dr. Saxena. 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 12/16/17. Seen by Dr. Saxena. 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 11/28/17. Seen by Dr. Saxena. 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 11/21/17. Seen by Dr. Saxena. 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 She completed her course of Bactrim and continues to use topical gentamicin which is treating the Acinetobacter and MSSA positive wound culture. 11/07/17. Seen by Dr. Saxena. The patient reports significant improvement in terms of the left leg pain and drainage associated with the cellulitis and soft tissue radiation ulcer. She's completed a course of Bactrim and does not report adverse side effects 10/30/17. Seen by Dr. Saxena. The patient reports a significant improvement in terms of the left lower leg pain and drainage from the soft tissue radiation ulcer and surrounding cellulitis since starting on Bactrim for the recently cultured Acinetobacter and Staph positive wound culture. She does not report adverse side effects nor fevers or feeling unwell in general. 10/25/17. Seen by Dr. Saxena. The patient is new to our clinic and presents with a left lower leg non-healing radiation ulcer following treatment for a basal cell carcinoma in July. She reports continued burning and stinging of the ulcer as well as a painful circumferential rash around the leg with heavy drainage from the medial aspect. She was placed on Keflex 3 days ago and feels it may have been some modest improvement in terms of symptoms over the drainage continues to be significant. The leg is chronically swollen and she is trying to wear compression stockings however this is been difficult due to the discomfort. Past Medical History This information was obtained from the patient Patient has a medical history of: Knee replacement (bilateral) Basal cell carcinoma (right lower leg; 07/2017) Squamous cell carcinoma Chronic venous hypertension (bilateral; w/ inflammation) Complaints and Symptoms This information was obtained from the patient Patient complains of: General Notes: I have reviewed and concur with the Review of Systems and Past Family Social History documents completed by the clinician, I have reviewed and concur with the Wound Assessment document completed by the clinician Allergic/Immunologic: Frequent Rashes Integumentary (Hair/Skin/Nails): Open Sore Neurological: Loss of Protective Sensation Prior Wound History: Drainage, Erythema Patient denies complaints or symptoms related to: Cardiovascular (Central): Irregular heart beat Cardiovascular (Central/Peripheral): Intermittent Claudication Constitutional Symptoms (General Health): Chills, Fever Ear/Nose/Mouth/Throat: Hearing Loss / Aid Gastrointestinal (GI): Stomach/abdominal pain Hematologic/Lymphatic: Bleeding / Clotting Disorders, Bleeding Tendency Musculoskeletal: Assistive Devices Prior Wound History: Bleeding, Pain Psychiatric: Memory Loss Respiratory: Oxygen Use, Shortness of Breath OBJECTIVE Constitutional Vital signs reviewed and noted. Well developed. Alert. Clean appearing.. Height/ Length: 63 in (160.02 cm), Weight: 238.8 lbs (108.55 kgs), BMI: 42.3, Temperature: 98.1 ?F ( 36.72 ?C), Pulse: 62 bpm, Respiratory Rate: 18 breaths/min, Blood Pressure: 125/80 mmHg, Pulse Oximetry: 100 %. Ears, Nose, Mouth, and Throat: No clinically significant hearing loss on informal examination. Respiratory: No respiratory distress. Even respirations and without use of accessory muscles.. Cardiovascular: 1+ left lower extremity edema. Gastrointestinal (GI): Obese. Nondistended.. Integumentary (Hair, Skin) Moderate periwound erythema without warmth. Refer to appropriate clinician wound documentation for this visit; left lower leg ulcer extends to subcut with base minimally covered with pink granulation, remainder fibrin and yellow slough. Mild confluent, erythematous rash in the affected area with excortiation and yellow, crusted drainage. Wound #1 Left, Medial Leg is an acute Full Thickness Radiation Wound and has received a status of Not Healed. Subsequent wound encounter measurements are 3.1cm length x 4.1cm width x 0.3cm depth, with an area of 12.71 sq cm and a volume of 3.813 cubic cm. No tunneling has been noted. No sinus tract has been noted. No undermining has been noted. There is a moderate amount of serous drainage noted which has no odor. The patient reports a wound pain of level 0/10. The wound margin is regular. Wound bed has No epithelialization, Yes eschar, Yes slough, Yes bright red, firm granulation. The periwound skin moisture is normal. The periwound skin exhibited: Edema, Erythema. The periwound skin did not exhibit: Brawny Induration, Excoriation, Induration, Callus, Crepitus, Fluctuance, Friable, Rash, Atrophie Fox, Cyanosis, Ecchymosis, Hemosiderosis , Pallor, Rubor. The temperature of the periwound skin is Warm. Periwound skin does not exhibit signs or symptoms of infection. Local Pulse is Palpable. Neurological: Cranial nerves grossly intact with symmetric function normal by informal observation.. ASSESSMENT Active Problems ICD-10 (Encounter Diagnosis) L59.8 - Other specified disorders of the skin and subcutaneous tissue related to radiation (Encounter Diagnosis) L97.822 - Non-pressure chronic ulcer of other part of left lower leg with fat layer exposed (Encounter Diagnosis) B95.7 - Other staphylococcus as the cause of diseases classified elsewhere PROCEDURES Wound #1 Wound #1 (Radiation Wound) is located on the left, medial leg. A skin/ subcutaneous tissue level surgical debridement with a total area debrided of 13.02 sq cm was performed by Anselmo Saxena MD. Subcutaneous was removed along with devitalized tissue: slough. The following instrument(s) were used: curette. Pain control was achieved using 4% Lido. A time out was conducted prior to the start of the procedure. A minimal amount of bleeding was controlled with n/a. The procedure was tolerated well with a pain level of 0 throughout and a pain level of 0 following the procedure. Post Debridement Measurements: 3.1cm length x 4.2cm width x 0.4cm depth; with an area of 13.02 sq cm and a volume of 5.208 cubic cm; Additional Information Muscle fascia or bone removed and sent to pathology?: No PLAN Wound Orders: Wound #1 Left, Medial Leg Cleanser Cleanse Wound: - In Clinic May Shower. - With Cast Boot Dressings Primary dressing: - Foam Cover and secure with: - Foam and conform. Follow-Up Appointments Return Appointment: - - One week Scribing Attestation I attest, as the nurse, that I scribed these orders for the physician. Additional Orders: Topical Treatments Antibiotic/Antimicrobial Ointment/Cream. - Gentamicin ointment. 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 Please continue cleansing and dressing instruction per plastic surgeon. I've reviewed the clinician's documentation and agree with the evaluation and plan as written. In addition, the patient's ulcer demonstrates evidence of non-viable devitalized tissue which will continue to benefit from sharp debridement to help promote granulation and expedite healing. Also, the previously treated periulcer cellulitis appears to be recurring and I' ve started the patient on doxycycline based on the recent culture results. I'm also going to ask Dr. Sherman to see the patient prior to her next scheduled appointment in June to offer and opinion as to whether the malignancy may persist considering the very refractory nature of healing. We'll also await feedback from plastic surgery regarding the option of a skin graft. Electronic Signature(s) Signed By: Date: Anselmo Saxena MD 05/30/2018 13:30:07 Entered By: Anselmo Saxena on 05/30/2018 13:18:49
== END ==
PROVIDERS: Family Provider Family Medicine; PCP Family Medicine; Visit Provider Internal Medicine
DX: L59.8 Other specified disorders of the skin and subcutaneous tissue related to radiation (principal); L97.822 Non-pressure chronic ulcer of other part of left lower leg with fat layer exposed; B95.7 Other staphylococcus as the cause of diseases classified elsewhere
CPT/HCPCS: 11042

== ENCOUNTER → 2018-06-11 11:22 | Outpatient (CLI) | payer OTHER, SELFPAY | PROVIDERS: Family Provider Family Medicine; PCP Family Medicine; Visit Provider Internal Medicine | CPT/HCPCS: 99213 ==

== ENCOUNTER → 2018-06-18 10:40 | Outpatient (CLI) | payer OTHER, SELFPAY ==
--- NOTE | 2018-06-18 | OV.WND_ITS ---
Progress Note Details Patient Name: Paulina Troncoso Patient Number: [id number] PatientPatientDate: 06/18/2018 Clinician: Dannielle Galdamez Physician / Metal Trim Erector: Anselmo Saxena SUBJECTIVE Chief Complaint This information was obtained from the patient Radiation wound to left leg. Allergies MediHoney (honey) (Reaction: pain and rash) HPI This information was obtained from the patient 06/18/18. Seen by Dr. Saxena. 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 She was not able to see her initial plastic surgeon at her recent follow up visit and she states there's been no additional discussion or scheduling regarding a possible skin graft procedure. Also, the 3 biopsies of the ulcer base performed by her academic support assistant were negative for malignancy. 06/11/18. Seen by Dr. Saxena. 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 She's had 3 punch biopsies performed however results are not available in our clinic yet. She also will see her plastic surgeon later today to discuss the option of a skin graft noting the very refractory nature of this ulcer. 05/30/18. Seen by Dr. Saxena. 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 She states there was no plan current to place a skin graft however this would be discussed at her next visit. He recent wound culture grew a resistant coag negative Staph species and she does not report pain or increased drainage at the ulcer site. 05/23/18. Seen by Dr. Saxena. 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 She also is scheduled to see plastic surgery next Saturday to discuss a possible skin graft. She's also again complaining of left 3rd distal finger swelling and pain which she states responded well to a short course of prednisone recently. Her PCP however is out of the office today. 05/16/18. Seen by Dr. Saxena. 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 She does not report adverse side effects from the antibiotics and states she has an appointment with plastic surgery in [place] in mid- May to evaluate for a possible skin graft. She's also tolerating compression therapy with a Coban wrap which is treating chronic venous hypertension in the leg and has been very effective over the past few weeks. She's also now on a short course of prednisone which is treating a gout flare of her hands. 05/09/18. Seen by Fede Lyn PA-C. The patient reports no increase in drainage or pain from her left lower leg ulcer. She is on clindamycin for an infection of this ulcer. 05/02/18. Seen by Dr. Saxena. 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 She's also now on levofloxacin for the coag negative Staph wound culture and associated cellulitis and no longer reports pain at the ulcer site. Of note, she's now complaining of acute distal left 3rd finger pain along with swelling and redness that started yesterday despite being on levofloxacin. She does not have a history of gout but does work with her hands outside regularly. 04/30/18. Seen by Dr. Saxena. 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 Her wound culture grew MSSA and she reports significant diarrhea since starting the antibiotic. She does not report increased drainage from the ulcer. We had also planned to place a Grafix biologic skin substitute today if the infection appears to be resolved. 04/24/18. Seen by Dr. Saxena. 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 She does not report increased drainage however nor fevers or feeling unwell in general. 04/17/18. Seen by Dr. Saxena. 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 She does not report acute changes regarding the left lateral lower leg nor right lower leg venous ulcers. She also reports some increased swelling of the left lower leg but no fevers or feeling unwell in general. Her wound culture from last week grew pansensitive MSSA. 04/10/18. Seen by Dr. Saxena. The patient does not report increased drainage or pain associated with the left anterior lower leg soft tissue radiation ulcer, left lower lateral leg venous ulcer, nor right lower leg trauma wound since her last visit. 04/03/18. Seen by Dr. Saxena. The patient does not report increased drainage or pain associated with the left anterior lower leg soft tissue radiation ulcer, left lower lateral leg venous ulcer, nor right lower leg trauma wound since her last visit. 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 03/27/2018. Seen by Dr. Saxena. The patient reports a new trauma wound over the lateral left lower leg that occurred sometime in the last week but she is unsure of the mode of injury. She states its painful as well. 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 Of note, she stands for extended periods at work and wears a compression stocking on the left leg but not on the right. 03/20/18. Seen by Dr. Saxena. The patient reports some foul odor associated with the wound VAC dressing and had removed is about 2 days ago. 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 03/13/18. Seen by Dr. Saxena. 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 03/06/18. Seen by Dr. Saxena. 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 She does not report pain or increased drainage from the site nor adverse side effects from the antibiotics. 02/27/18. Seen by Dr. Saxena. 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 She does not report pain at the site nor fevers. 02/20/18. Dr. Saxena. 02/20/18. Seen by Dr. Saxena. The patient reports increased swelling and recurrence of erythema in the left lower leg soft tissue radiation ministerio-ulcer area. She doesn't report fevers or feeling unwell and completed a course of Augmentin recently that caused her to have significant GI symptoms. The patient is also scrubbing the site with soap in the shower despite our recommendations to not do so. 02/13/18. Seen by LAURA Daigle. The patient reports no increased drainage or pain to left lower leg soft tissue radiation ulcer. She was prescribed Augmentin for MSSA and Enterococcus faecalis positive wound culture and will complete this course tomorrow. 02/06/18. Seen by Dr. Saxena. The patient feels the left lower leg soft tissue radiation ulcer has stopped increasing in size since last week and since starting on Bactrim. She also feels the periulcer erythema and drainage have decreased. Her wound culture from last week grew MSSA and Enterococcus faecalis. She does not report adverse side effects of the antibiotics nor fevers or feeling unwell in general. 01/30/18. Seen by Fede Lyn PA-C. The patient reports that her ulcer became significantly larger 1-2 days after her last appointment. She was concerned it was a reaction to Medihoney and discontinued using it, and applied gentamicin instead. 01/20/18. Seen by Fede Lyn PA-C. The patient reports no increase in drainage from her radiation ulcer of the left lower leg. 01/01/18. Seen by Dr. Saxena. 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 12/16/17. Seen by Dr. Saxena. 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 11/28/17. Seen by Dr. Saxena. 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 11/21/17. Seen by Dr. Saxena. 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 She completed her course of Bactrim and continues to use topical gentamicin which is treating the Acinetobacter and MSSA positive wound culture. 11/07/17. Seen by Dr. Saxena. The patient reports significant improvement in terms of the left leg pain and drainage associated with the cellulitis and soft tissue radiation ulcer. She's completed a course of Bactrim and does not report adverse side effects 10/30/17. Seen by Dr. Saxena. The patient reports a significant improvement in terms of the left lower leg pain and drainage from the soft tissue radiation ulcer and surrounding cellulitis since starting on Bactrim for the recently cultured Acinetobacter and Staph positive wound culture. She does not report adverse side effects nor fevers or feeling unwell in general. 10/25/17. Seen by Dr. Saxena. The patient is new to our clinic and presents with a left lower leg non-healing radiation ulcer following treatment for a basal cell carcinoma in July. She reports continued burning and stinging of the ulcer as well as a painful circumferential rash around the leg with heavy drainage from the medial aspect. She was placed on Keflex 3 days ago and feels it may have been some modest improvement in terms of symptoms over the drainage continues to be significant. The leg is chronically swollen and she is trying to wear compression stockings however this is been difficult due to the discomfort. Past Medical History This information was obtained from the patient Patient has a medical history of: Knee replacement (bilateral) Basal cell carcinoma (right lower leg; 07/2017) Squamous cell carcinoma Chronic venous hypertension (bilateral; w/ inflammation) Complaints and Symptoms This information was obtained from the patient Patient complains of: General Notes: I have reviewed and concur with the Review of Systems and Past Family Social History documents completed by the clinician, I have reviewed and concur with the Wound Assessment document completed by the clinician Allergic/Immunologic: Frequent Rashes Integumentary (Hair/Skin/Nails): Open Sore Neurological: Loss of Protective Sensation Prior Wound History: Drainage, Erythema Patient denies complaints or symptoms related to: Cardiovascular (Central): Irregular heart beat Cardiovascular (Central/Peripheral): Intermittent Claudication Constitutional Symptoms (General Health): Chills, Fever Ear/Nose/Mouth/Throat: Hearing Loss / Aid Gastrointestinal (GI): Stomach/abdominal pain Hematologic/Lymphatic: Bleeding / Clotting Disorders, Bleeding Tendency Musculoskeletal: Assistive Devices Prior Wound History: Bleeding, Pain Psychiatric: Memory Loss Respiratory: Oxygen Use, Shortness of Breath OBJECTIVE Constitutional Vital signs reviewed and noted. Well developed. Alert. Clean appearing.. Height/ Length: 63 in (160.02 cm), Weight: 238.1 lbs (108.23 kgs), BMI: 42.2, Temperature: 97.9 ?F ( 36.61 ?C), Pulse: 60 bpm, Respiratory Rate: 18 breaths/min, Pulse Oximetry: 99 %. Ears, Nose, Mouth, and Throat: No clinically significant hearing loss on informal examination. Respiratory: No respiratory distress. Even respirations and without use of accessory muscles.. Integumentary (Hair, Skin) Mild periwound erythema with warmth. Refer to appropriate clinician wound documentation for this visit; left lower leg ulcer extends to subcut with base minimally covered with pink granulation, remainder fibrin and slough. Wound #1 Left, Medial Leg is an acute Full Thickness Radiation Wound and has received a status of Not Healed. Subsequent wound encounter measurements are 3.6cm length x 4cm width x 0.4cm depth, with an area of 14.4 sq cm and a volume of 5.76 cubic cm. No tunneling has been noted. No sinus tract has been noted. No undermining has been noted. There is a small amount of serous drainage noted which has no odor. The patient reports a wound pain of level 0/10. The wound margin is regular. Wound bed has No epithelialization, Yes eschar, Yes slough, Yes bright red, firm granulation. The periwound skin moisture is normal. The periwound skin exhibited: Edema, Erythema. The periwound skin did not exhibit: Brawny Induration, Excoriation, Induration, Callus, Crepitus, Fluctuance, Friable, Rash, Atrophie [place], Cyanosis, Ecchymosis, Hemosiderosis , Pallor, Rubor. The temperature of the periwound skin is Warm. Periwound skin does not exhibit signs or symptoms of infection. Local Pulse is Palpable. Neurological: Cranial nerves grossly intact with symmetric function normal by informal observation.. ASSESSMENT Active Problems ICD-10 (Encounter Diagnosis) L59.8 - Other specified disorders of the skin and subcutaneous tissue related to radiation (Encounter Diagnosis) L97.822 - Non-pressure chronic ulcer of other part of left lower leg with fat layer exposed PROCEDURES Wound #1 Wound #1 (Radiation Wound) is located on the left, medial leg. A skin/ subcutaneous tissue level surgical debridement with a total area debrided of 14.4 sq cm was performed by Anselmo Saxena MD. Subcutaneous was removed along with devitalized tissue: slough. The following instrument(s) were used: curette. Pain control was achieved using 4% [place]. A time out was conducted prior to the start of the procedure. A minimal amount of bleeding was controlled with n/a. The procedure was tolerated well with a pain level of 3 throughout and a pain level of 0 following the procedure. Post Debridement Measurements: 3.6cm length x 4cm width x 0.5cm depth; with an area of 14.4 sq cm and a volume of 7.2 cubic cm; Additional Information Muscle fascia or bone removed and sent to pathology?: No PLAN Wound Orders: Wound #1 Left, Medial Leg Anesthetic Topical Xylocaine to wound bed. - In clinic only. Cleanser Cleanse Wound: - In Clinic, normal saline and gauze. May Shower. - With Cast Boot Topical Treatments Antibiotic/Antimicrobial Ointment/Cream. - Hydrogel Dressings Primary dressing: - Telfa Cover and secure with: - Conform and tape. Follow-Up Appointments Return Appointment: - - One week Scribing Attestation I attest, as the nurse, that I scribed these orders for the physician. General Notes: We will call with any positive wound cultures requiring oral antibiotics. I've reviewed the clinician's documentation and agree with the evaluation and plan as written. In addition, the patient's ulcer demonstrates evidence of non-viable devitalized tissue which will continue to benefit from sharp debridement to help promote granulation and expedite healing. Also, due to the delay in the patient seeing her plastic surgeon I've decided to proceed with preparing the ulcer for effective debridement by hydrating the hardened, overlying eschar. I've also repeated a wound culture and will consider restarting an oral antibiotic pending the results. Electronic Signature(s) Signed By: Date: Anselmo Saxena MD 06/19/2018 13:47:32 Entered By: Anselmo Saxena on 06/18/2018 14:15:29
== END ==
PROVIDERS: Family Provider Family Medicine; PCP Family Medicine; Visit Provider Internal Medicine
DX: L59.8 Other specified disorders of the skin and subcutaneous tissue related to radiation (principal); L97.822 Non-pressure chronic ulcer of other part of left lower leg with fat layer exposed
CPT/HCPCS: 11042; 87070; 87075; 87077; 87147; 87186; 87205

== ENCOUNTER → 2018-06-25 09:34 | Outpatient (CLI) | payer OTHER, SELFPAY ==
--- NOTE | 2018-06-25 | OV.WND_ITS ---
Progress Note Details Patient Name: Paulina Troncoso Patient Number: [id number] PatientPatientDate: 06/25/2018 Clinician: Julia Alva Clinician Cosigner: Jessica Baer Physician / Hadoop Admin: Anselmo Saxena SUBJECTIVE Chief Complaint This information was obtained from the patient Radiation wound to left leg. Allergies MediHoney (honey) (Reaction: pain and rash) HPI This information was obtained from the patient 06/25/18. Seen by Dr. Saxena. 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 She was seen by Dr. Goldstein earlier this week regarding a possible skin graft and as of yet a decision to move forward has not been made. 06/18/18. Seen by Dr. Saxena. 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 She was not able to see her initial plastic surgeon at her recent follow up visit and she states there's been no additional discussion or scheduling regarding a possible skin graft procedure. Also, the 3 biopsies of the ulcer base performed by her agricultural crop farm manager were negative for malignancy. 06/11/18. Seen by Dr. Saxena. 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 She's had 3 punch biopsies performed however results are not available in our clinic yet. She also will see her plastic surgeon later today to discuss the option of a skin graft noting the very refractory nature of this ulcer. 05/30/18. Seen by Dr. Saxena. 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 She states there was no plan current to place a skin graft however this would be discussed at her next visit. He recent wound culture grew a resistant coag negative Staph species and she does not report pain or increased drainage at the ulcer site. 05/23/18. Seen by Dr. Saxena. 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 She also is scheduled to see plastic surgery next Saturday to discuss a possible skin graft. She's also again complaining of left 3rd distal finger swelling and pain which she states responded well to a short course of prednisone recently. Her PCP however is out of the office today. 05/16/18. Seen by Dr. Saxena. 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 She does not report adverse side effects from the antibiotics and states she has an appointment with plastic surgery in [place] in mid- May to evaluate for a possible skin graft. She's also tolerating compression therapy with a Coban wrap which is treating chronic venous hypertension in the leg and has been very effective over the past few weeks. She's also now on a short course of prednisone which is treating a gout flare of her hands. 05/09/18. Seen by Fede Lyn PA-C. The patient reports no increase in drainage or pain from her left lower leg ulcer. She is on clindamycin for an infection of this ulcer. 05/02/18. Seen by Dr. Saxena. 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 She's also now on levofloxacin for the coag negative Staph wound culture and associated cellulitis and no longer reports pain at the ulcer site. Of note, she's now complaining of acute distal left 3rd finger pain along with swelling and redness that started yesterday despite being on levofloxacin. She does not have a history of gout but does work with her hands outside regularly. 04/30/18. Seen by Dr. Saxena. 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 Her wound culture grew MSSA and she reports significant diarrhea since starting the antibiotic. She does not report increased drainage from the ulcer. We had also planned to place a Grafix biologic skin substitute today if the infection appears to be resolved. 04/24/18. Seen by Dr. Saxena. 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 She does not report increased drainage however nor fevers or feeling unwell in general. 04/17/18. Seen by Dr. Saxena. 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 She does not report acute changes regarding the left lateral lower leg nor right lower leg venous ulcers. She also reports some increased swelling of the left lower leg but no fevers or feeling unwell in general. Her wound culture from last week grew pansensitive MSSA. 04/10/18. Seen by Dr. Saxena. The patient does not report increased drainage or pain associated with the left anterior lower leg soft tissue radiation ulcer, left lower lateral leg venous ulcer, nor right lower leg trauma wound since her last visit. 04/03/18. Seen by Dr. Saxena. The patient does not report increased drainage or pain associated with the left anterior lower leg soft tissue radiation ulcer, left lower lateral leg venous ulcer, nor right lower leg trauma wound since her last visit. 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 03/27/2018. Seen by Dr. Saxena. The patient reports a new trauma wound over the lateral left lower leg that occurred sometime in the last week but she is unsure of the mode of injury. She states its painful as well. 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 Of note, she stands for extended periods at work and wears a compression stocking on the left leg but not on the right. 03/20/18. Seen by Dr. Saxena. The patient reports some foul odor associated with the wound VAC dressing and had removed is about 2 days ago. 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 03/13/18. Seen by Dr. Saxena. 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 03/06/18. Seen by Dr. Saxena. 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 She does not report pain or increased drainage from the site nor adverse side effects from the antibiotics. 02/27/18. Seen by Dr. Saxena. 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 She does not report pain at the site nor fevers. 02/20/18. Dr. Saxena. 02/20/18. Seen by Dr. Saxena. The patient reports increased swelling and recurrence of erythema in the left lower leg soft tissue radiation ministerio-ulcer area. She doesn't report fevers or feeling unwell and completed a course of Augmentin recently that caused her to have significant GI symptoms. The patient is also scrubbing the site with soap in the shower despite our recommendations to not do so. 02/13/18. Seen by LAURA Daigle. The patient reports no increased drainage or pain to left lower leg soft tissue radiation ulcer. She was prescribed Augmentin for MSSA and Enterococcus faecalis positive wound culture and will complete this course tomorrow. 02/06/18. Seen by Dr. Saxena. The patient feels the left lower leg soft tissue radiation ulcer has stopped increasing in size since last week and since starting on Bactrim. She also feels the periulcer erythema and drainage have decreased. Her wound culture from last week grew MSSA and Enterococcus faecalis. She does not report adverse side effects of the antibiotics nor fevers or feeling unwell in general. 01/30/18. Seen by Fede Lyn PA-C. The patient reports that her ulcer became significantly larger 1-2 days after her last appointment. She was concerned it was a reaction to Medihoney and discontinued using it, and applied gentamicin instead. 01/20/18. Seen by Fede Lyn PA-C. The patient reports no increase in drainage from her radiation ulcer of the left lower leg. 01/01/18. Seen by Dr. Saxena. 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 12/16/17. Seen by Dr. Saxena. 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 11/28/17. Seen by Dr. Saxena. 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 11/21/17. Seen by Dr. Saxena. 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 She completed her course of Bactrim and continues to use topical gentamicin which is treating the Acinetobacter and MSSA positive wound culture. 11/07/17. Seen by Dr. Saxena. The patient reports significant improvement in terms of the left leg pain and drainage associated with the cellulitis and soft tissue radiation ulcer. She's completed a course of Bactrim and does not report adverse side effects 10/30/17. Seen by Dr. Saxena. The patient reports a significant improvement in terms of the left lower leg pain and drainage from the soft tissue radiation ulcer and surrounding cellulitis since starting on Bactrim for the recently cultured Acinetobacter and Staph positive wound culture. She does not report adverse side effects nor fevers or feeling unwell in general. 10/25/17. Seen by Dr. Saxena. The patient is new to our clinic and presents with a left lower leg non-healing radiation ulcer following treatment for a basal cell carcinoma in July. She reports continued burning and stinging of the ulcer as well as a painful circumferential rash around the leg with heavy drainage from the medial aspect. She was placed on Keflex 3 days ago and feels it may have been some modest improvement in terms of symptoms over the drainage continues to be significant. The leg is chronically swollen and she is trying to wear compression stockings however this is been difficult due to the discomfort. Past Medical History This information was obtained from the patient Patient has a medical history of: Knee replacement (bilateral) Basal cell carcinoma (right lower leg; 07/2017) Squamous cell carcinoma Chronic venous hypertension (bilateral; w/ inflammation) Complaints and Symptoms This information was obtained from the patient Patient complains of: General Notes: I have reviewed and concur with the Review of Systems and Past Family Social History documents completed by the clinician, I have reviewed and concur with the Wound Assessment document completed by the clinician Allergic/Immunologic: Frequent Rashes Integumentary (Hair/Skin/Nails): Open Sore Neurological: Loss of Protective Sensation Prior Wound History: Drainage, Erythema Patient denies complaints or symptoms related to: Cardiovascular (Central): Irregular heart beat Cardiovascular (Central/Peripheral): Intermittent Claudication Constitutional Symptoms (General Health): Chills, Fever Ear/Nose/Mouth/Throat: Hearing Loss / Aid Gastrointestinal (GI): Stomach/abdominal pain Hematologic/Lymphatic: Bleeding / Clotting Disorders, Bleeding Tendency Musculoskeletal: Assistive Devices Prior Wound History: Bleeding, Pain Psychiatric: Memory Loss Respiratory: Oxygen Use, Shortness of Breath OBJECTIVE Constitutional BP elevated; Afebrile; Alert and in no distress. Well developed. Alert. Clean appearing.. Height/Length: 63 in (160.02 cm), Weight: 237.9 lbs (108.14 kgs), BMI: 42.1, Temperature: 98.1 ?F (36.72 ?C), Pulse: 68 bpm, Respiratory Rate: 18 breaths/min, Blood Pressure: 182/92 mmHg, Pulse Oximetry: 98 %. Vital Signs Notes: Blood pressure elevated today. Ears, Nose, Mouth, and Throat: No clinically significant hearing loss on informal examination. Respiratory: No respiratory distress. Even respirations and without use of accessory muscles.. Cardiovascular: 2+ left lower extremity edema. Integumentary (Hair, Skin) Mild periwound erythema without warmth. Refer to appropriate clinician wound documentation for this visit; left lower leg ulcer extends to subcut with base minimally covered with pink granulation, remainder fibrin and slough. Wound #1 Left, Medial Leg is an acute Full Thickness Radiation Wound and has received a status of Not Healed. Subsequent wound encounter measurements are 3.5cm length x 4.1cm width x 0.4cm depth, with an area of 14.35 sq cm and a volume of 5.74 cubic cm. No tunneling has been noted. No sinus tract has been noted. No undermining has been noted. There is a small amount of serous drainage noted which has no odor. The patient reports a wound pain of level 0/10. The wound margin is regular. Wound bed has No epithelialization, No eschar, Yes slough, Yes bright red, firm granulation. The periwound skin moisture is normal. The periwound skin exhibited: Edema, Erythema. The periwound skin did not exhibit: Brawny Induration, Excoriation, Induration, Callus, Crepitus, Fluctuance, Friable, Rash, Atrophie [place], Cyanosis, Ecchymosis, Hemosiderosis , Pallor, Rubor. The temperature of the periwound skin is Warm. Periwound skin does not exhibit signs or symptoms of infection. Local Pulse is Palpable. General Notes: Very few buds of granulation less than 5%. Mostly slough in wound base. Neurological: Cranial nerves grossly intact with symmetric function normal by informal observation.. ASSESSMENT Active Problems ICD-10 (Encounter Diagnosis) L59.8 - Other specified disorders of the skin and subcutaneous tissue related to radiation (Encounter Diagnosis) L97.822 - Non-pressure chronic ulcer of other part of left lower leg with fat layer exposed PROCEDURES Wound #1 Wound #1 (Radiation Wound) is located on the left, medial leg. A skin/ subcutaneous tissue level surgical debridement with a total area debrided of 14.35 sq cm was performed by Anselmo Saxena MD. Subcutaneous was removed along with devitalized tissue: slough. The following instrument(s) were used: curette. Pain control was achieved using 4% [place]. A time out was conducted prior to the start of the procedure. No bleeding occurred. The procedure was tolerated well with a pain level of 0 throughout and a pain level of 0 following the procedure. Post Debridement Measurements: 3.5cm length x 4.1cm width x 0.4cm depth; with an area of 14.35 sq cm and a volume of 5.74 cubic cm; Additional Information Muscle fascia or bone removed and sent to pathology?: No PLAN Wound Orders: Wound #1 Left, Medial Leg Anesthetic Topical Xylocaine to wound bed. - In clinic only. Cleanser Cleanse Wound: - In Clinic, normal saline and gauze. May Shower. - With Cast Boot Topical Treatments Antibiotic/Antimicrobial Ointment/Cream. - Hydrogel Dressings Primary dressing: - Telfa Cover and secure with: - Conform and tape. Compression/Edema Control Elevation of leg(s) above the level of the heart when sitting. Avoid prolonged standing in one place. Single Layer Compression Hose - Tetra F to leg. Follow-Up Appointments Return Appointment: - - One week Scribing Attestation I attest, as the nurse, that I scribed these orders for the physician. General Notes: Dr. Saxena will call Dr. Goldstein. I've reviewed the clinician's documentation and agree with the evaluation and plan as written. In addition, the patient's ulcer demonstrates evidence of non-viable devitalized tissue which will continue to benefit from sharp debridement to help promote granulation and expedite healing. Also, I'll liase with Dr. Goldstein regarding the patient's care plan and the possibility of performing a skin graft vs. placing a biologic skin substitute. Electronic Signature(s) Signed By: Date: Anselmo Saxena MD 06/26/2018 09:16:50 Entered By: Anselmo Saxena on 06/26/2018 09:12:16
== END ==
PROVIDERS: Family Provider Family Medicine; PCP Family Medicine; Visit Provider Internal Medicine
DX: L59.8 Other specified disorders of the skin and subcutaneous tissue related to radiation (principal); L97.822 Non-pressure chronic ulcer of other part of left lower leg with fat layer exposed
CPT/HCPCS: 11042

== ENCOUNTER → 2018-07-02 09:14 | Outpatient (CLI) | payer OTHER, SELFPAY ==
--- NOTE | 2018-07-02 | OV.WND_ITS ---
Progress Note Details Patient Name: Paulina Troncoso Patient Number: [id number] PatientPatientDate: 07/02/2018 Clinician: Julia Alva Clinician Cosigner: Dorie Moyer Physician / Senior Erp Consultant: Anselmo Saxena SUBJECTIVE Chief Complaint This information was obtained from the patient Radiation wound to left leg. Allergies MediHoney (honey) (Reaction: pain and rash) HPI This information was obtained from the patient 07/02/18. Seen by Dr. Saxena. 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 Goldstein for a skin graft in mid-August. She'll be traveling in the interim and unable to make a few of her upcoming appointments as well. 06/25/18. Seen by Dr. Saxena. 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 She was seen by Dr. Goldstein earlier this week regarding a possible skin graft and as of yet a decision to move forward has not been made. 06/18/18. Seen by Dr. Saxena. 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 She was not able to see her initial plastic surgeon at her recent follow up visit and she states there's been no additional discussion or scheduling regarding a possible skin graft procedure. Also, the 3 biopsies of the ulcer base performed by her plating machine operator were negative for malignancy. 06/11/18. Seen by Dr. Saxena. 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 She's had 3 punch biopsies performed however results are not available in our clinic yet. She also will see her plastic surgeon later today to discuss the option of a skin graft noting the very refractory nature of this ulcer. 05/30/18. Seen by Dr. Saxena. 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 She states there was no plan current to place a skin graft however this would be discussed at her next visit. He recent wound culture grew a resistant coag negative Staph species and she does not report pain or increased drainage at the ulcer site. 05/23/18. Seen by Dr. Saxena. 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 She also is scheduled to see plastic surgery next Saturday to discuss a possible skin graft. She's also again complaining of left 3rd distal finger swelling and pain which she states responded well to a short course of prednisone recently. Her PCP however is out of the office today. 05/16/18. Seen by Dr. Saxena. 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 She does not report adverse side effects from the antibiotics and states she has an appointment with plastic surgery in [place] in mid- May to evaluate for a possible skin graft. She's also tolerating compression therapy with a Coban wrap which is treating chronic venous hypertension in the leg and has been very effective over the past few weeks. She's also now on a short course of prednisone which is treating a gout flare of her hands. 05/09/18. Seen by Fede Lyn PA-C. The patient reports no increase in drainage or pain from her left lower leg ulcer. She is on clindamycin for an infection of this ulcer. 05/02/18. Seen by Dr. Saxena. 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 She's also now on levofloxacin for the coag negative Staph wound culture and associated cellulitis and no longer reports pain at the ulcer site. Of note, she's now complaining of acute distal left 3rd finger pain along with swelling and redness that started yesterday despite being on levofloxacin. She does not have a history of gout but does work with her hands outside regularly. 04/30/18. Seen by Dr. Saxena. 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 Her wound culture grew MSSA and she reports significant diarrhea since starting the antibiotic. She does not report increased drainage from the ulcer. We had also planned to place a Grafix biologic skin substitute today if the infection appears to be resolved. 04/24/18. Seen by Dr. Saxena. 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 She does not report increased drainage however nor fevers or feeling unwell in general. 04/17/18. Seen by Dr. Saxena. 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 She does not report acute changes regarding the left lateral lower leg nor right lower leg venous ulcers. She also reports some increased swelling of the left lower leg but no fevers or feeling unwell in general. Her wound culture from last week grew pansensitive MSSA. 04/10/18. Seen by Dr. Saxena. The patient does not report increased drainage or pain associated with the left anterior lower leg soft tissue radiation ulcer, left lower lateral leg venous ulcer, nor right lower leg trauma wound since her last visit. 04/03/18. Seen by Dr. Saxena. The patient does not report increased drainage or pain associated with the left anterior lower leg soft tissue radiation ulcer, left lower lateral leg venous ulcer, nor right lower leg trauma wound since her last visit. 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 03/27/2018. Seen by Dr. Saxena. The patient reports a new trauma wound over the lateral left lower leg that occurred sometime in the last week but she is unsure of the mode of injury. She states its painful as well. 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 Of note, she stands for extended periods at work and wears a compression stocking on the left leg but not on the right. 03/20/18. Seen by Dr. Saxena. The patient reports some foul odor associated with the wound VAC dressing and had removed is about 2 days ago. 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 03/13/18. Seen by Dr. Saxena. 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 03/06/18. Seen by Dr. Saxena. 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 She does not report pain or increased drainage from the site nor adverse side effects from the antibiotics. 02/27/18. Seen by Dr. Saxena. 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 She does not report pain at the site nor fevers. 02/20/18. Dr. Saxena. 02/20/18. Seen by Dr. Saxena. The patient reports increased swelling and recurrence of erythema in the left lower leg soft tissue radiation ministerio-ulcer area. She doesn't report fevers or feeling unwell and completed a course of Augmentin recently that caused her to have significant GI symptoms. The patient is also scrubbing the site with soap in the shower despite our recommendations to not do so. 02/13/18. Seen by LAURA Daigle. The patient reports no increased drainage or pain to left lower leg soft tissue radiation ulcer. She was prescribed Augmentin for MSSA and Enterococcus faecalis positive wound culture and will complete this course tomorrow. 02/06/18. Seen by Dr. Saxena. The patient feels the left lower leg soft tissue radiation ulcer has stopped increasing in size since last week and since starting on Bactrim. She also feels the periulcer erythema and drainage have decreased. Her wound culture from last week grew MSSA and Enterococcus faecalis. She does not report adverse side effects of the antibiotics nor fevers or feeling unwell in general. 01/30/18. Seen by Fede Lyn PA-C. The patient reports that her ulcer became significantly larger 1-2 days after her last appointment. She was concerned it was a reaction to Medihoney and discontinued using it, and applied gentamicin instead. 01/20/18. Seen by Fede Lyn PA-C. The patient reports no increase in drainage from her radiation ulcer of the left lower leg. 01/01/18. Seen by Dr. Saxena. 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 12/16/17. Seen by Dr. Saxena. 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 11/28/17. Seen by Dr. Saxena. 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 11/21/17. Seen by Dr. Saxena. 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 She completed her course of Bactrim and continues to use topical gentamicin which is treating the Acinetobacter and MSSA positive wound culture. 11/07/17. Seen by Dr. Saxena. The patient reports significant improvement in terms of the left leg pain and drainage associated with the cellulitis and soft tissue radiation ulcer. She's completed a course of Bactrim and does not report adverse side effects 10/30/17. Seen by Dr. Saxena. The patient reports a significant improvement in terms of the left lower leg pain and drainage from the soft tissue radiation ulcer and surrounding cellulitis since starting on Bactrim for the recently cultured Acinetobacter and Staph positive wound culture. She does not report adverse side effects nor fevers or feeling unwell in general. 10/25/17. Seen by Dr. Saxena. The patient is new to our clinic and presents with a left lower leg non-healing radiation ulcer following treatment for a basal cell carcinoma in July. She reports continued burning and stinging of the ulcer as well as a painful circumferential rash around the leg with heavy drainage from the medial aspect. She was placed on Keflex 3 days ago and feels it may have been some modest improvement in terms of symptoms over the drainage continues to be significant. The leg is chronically swollen and she is trying to wear compression stockings however this is been difficult due to the discomfort. Past Medical History This information was obtained from the patient Patient has a medical history of: Knee replacement (bilateral) Basal cell carcinoma (right lower leg; 07/2017) Squamous cell carcinoma Chronic venous hypertension (bilateral; w/ inflammation) Complaints and Symptoms This information was obtained from the patient Patient complains of: General Notes: I have reviewed and concur with the Review of Systems and Past Family Social History documents completed by the clinician, I have reviewed and concur with the Wound Assessment document completed by the clinician Allergic/Immunologic: Frequent Rashes Integumentary (Hair/Skin/Nails): Open Sore Neurological: Loss of Protective Sensation Prior Wound History: Drainage, Erythema Patient denies complaints or symptoms related to: Cardiovascular (Central): Irregular heart beat Cardiovascular (Central/Peripheral): Intermittent Claudication Constitutional Symptoms (General Health): Chills, Fever Ear/Nose/Mouth/Throat: Hearing Loss / Aid Gastrointestinal (GI): Stomach/abdominal pain Hematologic/Lymphatic: Bleeding / Clotting Disorders, Bleeding Tendency Musculoskeletal: Assistive Devices Prior Wound History: Bleeding, Pain Psychiatric: Memory Loss Respiratory: Oxygen Use, Shortness of Breath OBJECTIVE Constitutional Vital signs reviewed and noted. Well developed. Alert. Clean appearing.. Height/ Length: 63 in (160.02 cm), Weight: 239.5 lbs (108.86 kgs), BMI: 42.4, Temperature: 97 ?F ( 36.11 ?C), Pulse: 68 bpm, Respiratory Rate: 18 breaths/min, Pulse Oximetry: 98 %. Ears, Nose, Mouth, and Throat: No clinically significant hearing loss on informal examination. Cardiovascular: 2+ left lower extremity edema. Integumentary (Hair, Skin) Mild periwound erythema without warmth. Refer to appropriate clinician wound documentation for this visit; left lower leg ulcer extends to subcut with base partially covered with pink granulation, remainder fibrin and slough. Wound #1 Left, Medial Leg is an acute Full Thickness Radiation Wound and has received a status of Not Healed. Subsequent wound encounter measurements are 3.3cm length x 4cm width x 0.3cm depth, with an area of 13.2 sq cm and a volume of 3.96 cubic cm. No tunneling has been noted. No sinus tract has been noted. No undermining has been noted. There is a small amount of serous drainage noted which has no odor. The patient reports a wound pain of level 0/10. The wound margin is regular. Wound bed has No epithelialization, No eschar, Yes slough, Yes bright red, firm granulation. The periwound skin moisture is normal. The periwound skin exhibited: Edema, Erythema. The periwound skin did not exhibit: Brawny Induration, Excoriation, Induration, Callus, Crepitus, Fluctuance, Friable, Rash, Atrophie Viridiana, Cyanosis, Ecchymosis, Hemosiderosis , Pallor, Rubor. The temperature of the periwound skin is Warm. Periwound skin does not exhibit signs or symptoms of infection. Local Pulse is Palpable. Neurological: Cranial nerves grossly intact with symmetric function normal by informal observation.. ASSESSMENT Active Problems ICD-10 (Encounter Diagnosis) L59.8 - Other specified disorders of the skin and subcutaneous tissue related to radiation (Encounter Diagnosis) L97.822 - Non-pressure chronic ulcer of other part of left lower leg with fat layer exposed PROCEDURES Wound #1 Wound #1 (Radiation Wound) is located on the left, medial leg. A skin/ subcutaneous tissue level surgical debridement with a total area debrided of 13.2 sq cm was performed by Anselmo Saxena MD. Subcutaneous was removed along with devitalized tissue: exudate and slough. The following instrument(s) were used: curette. Pain control was achieved using 4% Lido. A time out was conducted prior to the start of the procedure. A minimal amount of bleeding was controlled with pressure. The procedure was tolerated well with a pain level of 0 throughout and a pain level of 0 following the procedure. Post Debridement Measurements: 3.3cm length x 4cm width x 0.3cm depth; with an area of 13.2 sq cm and a volume of 3.96 cubic cm; Additional Information Muscle fascia or bone removed and sent to pathology?: No PLAN Wound Orders: Wound #1 Left, Medial Leg Anesthetic Topical Xylocaine to wound bed. - In clinic only. Cleanser Cleanse Wound: - In Clinic, normal saline and gauze. May Shower. - With Cast Boot Topical Treatments Antibiotic/Antimicrobial Ointment/Cream. - Hydrogel Dressings Primary dressing: - Aquacel Cover and secure with: - Aquacel Foam Compression/Edema Control Elevation of leg(s) above the level of the heart when sitting. Avoid prolonged standing in one place. Single Layer Compression Hose - Tetra F to leg. Follow-Up Appointments Return Appointment: - - One week Scribing Attestation I attest, as the nurse, that I scribed these orders for the physician. I've reviewed the clinician's documentation and agree with the evaluation and plan as written. In addition, the patient's ulcer demonstrates evidence of non-viable devitalized tissue which will continue to benefit from sharp debridement to help promote granulation and expedite healing. Electronic Signature(s) Signed By: Date: Anselmo Saxena MD 07/03/2018 06:27:44 Entered By: Anselmo Saxena on 07/02/2018 13:20:12
== END ==
PROVIDERS: Family Provider Family Medicine; PCP Family Medicine; Visit Provider Internal Medicine
DX: L59.8 Other specified disorders of the skin and subcutaneous tissue related to radiation (principal); L97.822 Non-pressure chronic ulcer of other part of left lower leg with fat layer exposed
CPT/HCPCS: 11042

== ENCOUNTER → 2018-07-09 09:14 | Outpatient (CLI) | payer OTHER, SELFPAY | PROVIDERS: Family Provider Family Medicine; PCP Family Medicine; Visit Provider Internal Medicine | DX: L59.8 Other specified disorders of the skin and subcutaneous tissue related to radiation (principal); L97.822 Non-pressure chronic ulcer of other part of left lower leg with fat layer exposed; L03.116 Cellulitis of left lower limb | CPT/HCPCS: 11042; 87070; 87077; 87186; 87205 ==

== ENCOUNTER → 2018-07-22 09:24 | Outpatient (CLI) | payer MEDICARE, OTHER, SELFPAY ==
--- NOTE | 2018-07-22 | OV.WND_ITS ---
Progress Note Details Patient Name: Paulina Troncoso Patient Number: [id number] PatientPatientDate: 07/22/2018 Clinician: Karol Santos Clinician Cosigner: Jessica Baer Physician / Hand Engraver: Anselmo Saxena SUBJECTIVE Chief Complaint This information was obtained from the patient Radiation wound to left leg. Allergies MediHoney (honey) (Reaction: pain and rash) HPI This information was obtained from the patient 07/22/18. Seen by Dr. Saxena. 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 Her skin graft is schedule for the end of July and she's leaving for a 2 week camping holiday between now and then. 07/09/18. Seen by Dr. Saxena. 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 She has her skin graft procedure scheduled for mid-July and will traveling for the next two weeks out of the area. 07/02/18. Seen by Dr. Saxena. 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 Goldstein for a skin graft in mid-August. She'll be traveling in the interim and unable to make a few of her upcoming appointments as well. 06/25/18. Seen by Dr. Saxena. 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 She was seen by Dr. Goldstein earlier this week regarding a possible skin graft and as of yet a decision to move forward has not been made. 06/18/18. Seen by Dr. Saxena. 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 She was not able to see her initial plastic surgeon at her recent follow up visit and she states there's been no additional discussion or scheduling regarding a possible skin graft procedure. Also, the 3 biopsies of the ulcer base performed by her medical observer were negative for malignancy. 06/11/18. Seen by Dr. Saxena. 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 She's had 3 punch biopsies performed however results are not available in our clinic yet. She also will see her plastic surgeon later today to discuss the option of a skin graft noting the very refractory nature of this ulcer. 05/30/18. Seen by Dr. Saxena. 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 She states there was no plan current to place a skin graft however this would be discussed at her next visit. He recent wound culture grew a resistant coag negative Staph species and she does not report pain or increased drainage at the ulcer site. 05/23/18. Seen by Dr. Saxena. 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 She also is scheduled to see plastic surgery next Saturday to discuss a possible skin graft. She's also again complaining of left 3rd distal finger swelling and pain which she states responded well to a short course of prednisone recently. Her PCP however is out of the office today. 05/16/18. Seen by Dr. Saxena. 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 She does not report adverse side effects from the antibiotics and states she has an appointment with plastic surgery in [place] in mid- May to evaluate for a possible skin graft. She's also tolerating compression therapy with a Coban wrap which is treating chronic venous hypertension in the leg and has been very effective over the past few weeks. She's also now on a short course of prednisone which is treating a gout flare of her hands. 05/09/18. Seen by Fede Lyn PA-C. The patient reports no increase in drainage or pain from her left lower leg ulcer. She is on clindamycin for an infection of this ulcer. 05/02/18. Seen by Dr. Saxena. 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 She's also now on levofloxacin for the coag negative Staph wound culture and associated cellulitis and no longer reports pain at the ulcer site. Of note, she's now complaining of acute distal left 3rd finger pain along with swelling and redness that started yesterday despite being on levofloxacin. She does not have a history of gout but does work with her hands outside regularly. 04/30/18. Seen by Dr. Saxena. 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 Her wound culture grew MSSA and she reports significant diarrhea since starting the antibiotic. She does not report increased drainage from the ulcer. We had also planned to place a Grafix biologic skin substitute today if the infection appears to be resolved. 04/24/18. Seen by Dr. Saxena. 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 She does not report increased drainage however nor fevers or feeling unwell in general. 04/17/18. Seen by Dr. Saxena. 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 She does not report acute changes regarding the left lateral lower leg nor right lower leg venous ulcers. She also reports some increased swelling of the left lower leg but no fevers or feeling unwell in general. Her wound culture from last week grew pansensitive MSSA. 04/10/18. Seen by Dr. Saxena. The patient does not report increased drainage or pain associated with the left anterior lower leg soft tissue radiation ulcer, left lower lateral leg venous ulcer, nor right lower leg trauma wound since her last visit. 04/03/18. Seen by Dr. Saxena. The patient does not report increased drainage or pain associated with the left anterior lower leg soft tissue radiation ulcer, left lower lateral leg venous ulcer, nor right lower leg trauma wound since her last visit. 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 03/27/2018. Seen by Dr. Saxena. The patient reports a new trauma wound over the lateral left lower leg that occurred sometime in the last week but she is unsure of the mode of injury. She states its painful as well. 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 Of note, she stands for extended periods at work and wears a compression stocking on the left leg but not on the right. 03/20/18. Seen by Dr. Saxena. The patient reports some foul odor associated with the wound VAC dressing and had removed is about 2 days ago. 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 03/13/18. Seen by Dr. Saxena. 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 03/06/18. Seen by Dr. Saxena. 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 She does not report pain or increased drainage from the site nor adverse side effects from the antibiotics. 02/27/18. Seen by Dr. Saxena. 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 She does not report pain at the site nor fevers. 02/20/18. Dr. Saxena. 02/20/18. Seen by Dr. Saxena. The patient reports increased swelling and recurrence of erythema in the left lower leg soft tissue radiation ministerio-ulcer area. She doesn't report fevers or feeling unwell and completed a course of Augmentin recently that caused her to have significant GI symptoms. The patient is also scrubbing the site with soap in the shower despite our recommendations to not do so. 02/13/18. Seen by LAURA Daigle. The patient reports no increased drainage or pain to left lower leg soft tissue radiation ulcer. She was prescribed Augmentin for MSSA and Enterococcus faecalis positive wound culture and will complete this course tomorrow. 02/06/18. Seen by Dr. Saxena. The patient feels the left lower leg soft tissue radiation ulcer has stopped increasing in size since last week and since starting on Bactrim. She also feels the periulcer erythema and drainage have decreased. Her wound culture from last week grew MSSA and Enterococcus faecalis. She does not report adverse side effects of the antibiotics nor fevers or feeling unwell in general. 01/30/18. Seen by Fede Lyn PA-C. The patient reports that her ulcer became significantly larger 1-2 days after her last appointment. She was concerned it was a reaction to Medihoney and discontinued using it, and applied gentamicin instead. 01/20/18. Seen by Fede Lyn PA-C. The patient reports no increase in drainage from her radiation ulcer of the left lower leg. 01/01/18. Seen by Dr. Saxena. 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 12/16/17. Seen by Dr. Saxena. 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 11/28/17. Seen by Dr. Saxena. 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 11/21/17. Seen by Dr. Saxena. 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 She completed her course of Bactrim and continues to use topical gentamicin which is treating the Acinetobacter and MSSA positive wound culture. 11/07/17. Seen by Dr. Saxena. The patient reports significant improvement in terms of the left leg pain and drainage associated with the cellulitis and soft tissue radiation ulcer. She's completed a course of Bactrim and does not report adverse side effects 10/30/17. Seen by Dr. Saxena. The patient reports a significant improvement in terms of the left lower leg pain and drainage from the soft tissue radiation ulcer and surrounding cellulitis since starting on Bactrim for the recently cultured Acinetobacter and Staph positive wound culture. She does not report adverse side effects nor fevers or feeling unwell in general. 10/25/17. Seen by Dr. Saxena. The patient is new to our clinic and presents with a left lower leg non-healing radiation ulcer following treatment for a basal cell carcinoma in July. She reports continued burning and stinging of the ulcer as well as a painful circumferential rash around the leg with heavy drainage from the medial aspect. She was placed on Keflex 3 days ago and feels it may have been some modest improvement in terms of symptoms over the drainage continues to be significant. The leg is chronically swollen and she is trying to wear compression stockings however this is been difficult due to the discomfort. Past Medical History This information was obtained from the patient Patient has a medical history of: Knee replacement (bilateral) Basal cell carcinoma (right lower leg; 07/2017) Squamous cell carcinoma Chronic venous hypertension (bilateral; w/ inflammation) Complaints and Symptoms This information was obtained from the patient Patient complains of: General Notes: I have reviewed and concur with the Review of Systems and Past Family Social History documents completed by the clinician, I have reviewed and concur with the Wound Assessment document completed by the clinician Allergic/Immunologic: Frequent Rashes Integumentary (Hair/Skin/Nails): Open Sore Neurological: Loss of Protective Sensation Prior Wound History: Drainage, Erythema Patient denies complaints or symptoms related to: Cardiovascular (Central): Irregular heart beat Cardiovascular (Central/Peripheral): Intermittent Claudication Constitutional Symptoms (General Health): Chills, Fever Ear/Nose/Mouth/Throat: Hearing Loss / Aid Gastrointestinal (GI): Stomach/abdominal pain Hematologic/Lymphatic: Bleeding / Clotting Disorders, Bleeding Tendency Musculoskeletal: Assistive Devices Prior Wound History: Bleeding, Pain Psychiatric: Memory Loss Respiratory: Oxygen Use, Shortness of Breath OBJECTIVE Constitutional BP elevated; Afebrile; Alert and in no distress. Well developed. Alert. Clean appearing.. Height/Length: 63 in (160.02 cm), Weight: 238.2 lbs (108.27 kgs), BMI: 42.2, Temperature: 97.5 ?F (36.39 ?C), Pulse: 64 bpm, Respiratory Rate: 18 breaths/min, Blood Pressure: 162/84 mmHg, Pulse Oximetry: 99 %. Ears, Nose, Mouth, and Throat: No clinically significant hearing loss on informal examination. Respiratory: No respiratory distress. Even respirations and without use of accessory muscles.. Cardiovascular: 1+ left lower extremity edema. Gastrointestinal (GI): Obese. Nondistended.. Integumentary (Hair, Skin) Mild periwound erythema without warmth. Refer to appropriate clinician wound documentation for this visit; left lower leg ulcer extends to subcut with base minimally covered with pink granulation, remainder yellow/white fibrin and slough. Wound #1 Left, Medial Leg is an acute Full Thickness Radiation Wound and has received a status of Not Healed. Subsequent wound encounter measurements are 3.8cm length x 4.3cm width x 0.3cm depth, with an area of 16.34 sq cm and a volume of 4.902 cubic cm. No tunneling has been noted. No sinus tract has been noted. No undermining has been noted. There is a moderate amount of serous drainage noted which has no odor. The patient reports a wound pain of level 0/10. The wound margin is regular. Wound bed has Yes epithelialization, No eschar, Yes slough, Yes pink, firm granulation. The periwound skin moisture is normal. The periwound skin exhibited: Edema, Erythema. The periwound skin did not exhibit: Brawny Induration, Excoriation, Induration, Callus, Crepitus, Fluctuance, Friable, Rash, Atrophie Viridiana, Cyanosis, Ecchymosis, Hemosiderosis , Pallor, Rubor. The temperature of the periwound skin is Warm. Periwound skin does not exhibit signs or symptoms of infection. Local Pulse is Palpable. Neurological: Cranial nerves grossly intact with symmetric function normal by informal observation.. ASSESSMENT Active Problems ICD-10 (Encounter Diagnosis) L59.8 - Other specified disorders of the skin and subcutaneous tissue related to radiation (Encounter Diagnosis) L97.822 - Non-pressure chronic ulcer of other part of left lower leg with fat layer exposed PROCEDURES Wound #1 Wound #1 (Radiation Wound) is located on the left, medial leg. A skin/ subcutaneous tissue level surgical debridement with a total area debrided of 18.24 sq cm was performed by Anselmo Saxena MD. Subcutaneous was removed along with devitalized tissue: slough. The following instrument(s) were used: curette. Pain control was achieved using 4% Lido. A time out was conducted prior to the start of the procedure. A minimal amount of bleeding was controlled with n/a. The procedure was tolerated well with a pain level of 0 throughout and a pain level of 0 following the procedure. Post Debridement Measurements: 3.8cm length x 4.8cm width x 0.4cm depth; with an area of 18.24 sq cm and a volume of 7.296 cubic cm; Additional Information Muscle fascia or bone removed and sent to pathology?: No PLAN Medications prescribed: lidocaine-prilocaine - topical 2.5 %-2.5 % cream every 8 hours as needed for 7 days starting 07/22/2018 I've reviewed the clinician's documentation and agree with the evaluation and plan as written. In addition, the patient's ulcer demonstrates evidence of non-viable devitalized tissue which will continue to benefit from sharp debridement to help promote granulation and expedite healing. Also, the patient's been strongly encouraged to seek medical attention while traveling if the ulcer appears to be deteriorating in terms of increased pain, drainage, or periulcer erythema and we'll see her as needed following her plastic surgery. Electronic Signature(s) Signed By: Date: Anselmo Saxena MD 07/23/2018 06:50:35 Entered By: Anselmo Saxena on 07/23/2018 06:46:59
== END ==
PROVIDERS: Family Provider Family Medicine; PCP Family Medicine; Visit Provider Internal Medicine
DX: L59.8 Other specified disorders of the skin and subcutaneous tissue related to radiation (principal); L97.822 Non-pressure chronic ulcer of other part of left lower leg with fat layer exposed
CPT/HCPCS: 11042; 87070; 87075; 87077; 87186; 87205

== ENCOUNTER → 2019-01-07 09:34 | Outpatient (CLI) | payer OTHER, SELFPAY | PROVIDERS: Family Provider Family Medicine; PCP Family Medicine; Visit Provider Family Medicine | DX: I87.312 Chronic venous hypertension (idiopathic) with ulcer of left lower extremity (principal); L97.821 Non-pressure chronic ulcer of other part of left lower leg limited to breakdown of skin; L03.116 Cellulitis of left lower limb | CPT/HCPCS: 99213 ==

== ENCOUNTER → 2019-01-12 13:05 | Outpatient (CLI) | payer OTHER, SELFPAY | PROVIDERS: Family Provider Family Medicine; PCP Family Medicine; Visit Provider Family Medicine | DX: L03.116 Cellulitis of left lower limb (principal); Z48.817 Encounter for surgical aftercare following surgery on the skin and subcutaneous tissue | CPT/HCPCS: 99212; 99213 ==

== ENCOUNTER → 2021-09-25 11:15 | Outpatient (CLI) | payer MEDICARE, OTHER, SELFPAY ==
[2021-09-25 18:40] LABS: Add Manual Diff / Slide Review NO; Basophils Absolute Auto 0 /uL (0-100); Basophils Percent Auto 0.7 % (0-2); Eosinophils Absolute Auto 200 /uL (0-450); Hematocrit 45.6 % (36-46); Hemoglobin 15.2 g/dL (12.0-16.0); Lymphocytes Absolute Auto 1300 /uL (1100-4500); Lymphocytes Percent Auto 22.3 % (25-40); Mean Corpuscular HGB Conc 33.3 % (30-36); Mean Corpuscular Hemoglobin 29.5 PG (26-34); Mean Corpuscular Volume 88.7 fL (80-100); Monocytes Absolute Auto 500 /uL (0-900); Monocytes Percent Auto 8.3 % (3-14); Neutrophils Absolute Auto 3800 /uL (1500-7000); Neutrophils Percent Auto 65.7 % (50-75); Platelet Count 214 X10^3/uL (150-400); Red Blood Cell Count 5.15 X10^6/uL (4.0-5.2); White Blood Cell Count 5.8 X10^3/uL (4.5-11.0)
[2021-09-25 18:54] LABS: Alanine Aminotransferase 25 IU/L (<35); Albumin 4.3 g/dL (3.5-5.0); Albumin Globulin Ratio 1.5 (1.0-2.8); Alkaline Phosphatase 88 U/L (38-126); Aspartate Aminotransferase 31 IU/L (14-36); BUN Creatinine Ratio 24.2 (6-22); Bilirubin Total 0.8 mg/dL (0.2-1.3); Blood Urea Nitrogen 24 mg/dL (7-17); Carbon Dioxide 31 mmol/L (22-32); Chloride 101 mmol/L (98-107); Cholesterol 165 mg/dL (140-199); Estimated Glomerular Filt Rate 54.1 mL/min (>60); Globulin 2.9 g/dL (1.7-4.1); Glucose 102 mg/dL (80-110); HDL Cholesterol 41 mg/dL (40-60); HEMOLYSIS < 15 (0-50); LDL Cholesterol Calculated 90 mg/dL (<100); Potassium 4.1 mmol/L (3.4-5.1); Sodium 140 mmol/L (137-145); Total Protein 7.2 g/dL (6.3-8.2); Triglycerides 172 mg/dL (35-150)
[2021-09-25 18:59] LABS: NT-proBNP (BNP-Adult 18+) 299 pg/mL (<450)
[2021-09-25 19:40] LABS: Hep C Virus Ab w/Reflex Quant NEGATIVE s/c (NEGATIVE)
== END ==
PROVIDERS: Family Provider Family Medicine; PCP Family Medicine; Visit Provider Physician Assistant
DX: I10 Essential (primary) hypertension (principal); R60.9 Edema, unspecified; R60.0 Localized edema; Z11.59 Encounter for screening for other viral diseases
CPT/HCPCS: 80053; 80061; 83880; 85025; 86803

== ENCOUNTER → 2023-01-24 10:19 | Outpatient (CLI) | payer MEDICARE, OTHER, SELFPAY ==
[2023-01-24 19:25] LABS: Add Manual Diff / Slide Review NO; Basophils Absolute Auto 0 /uL (0-100); Basophils Percent Auto 0.5 % (0-2); Eosinophils Absolute Auto 200 /uL (0-450); Eosinophils Percent Auto 3.3 % (2-4); Hematocrit 45.9 % (36-46); Lymphocytes Absolute Auto 1400 /uL (1100-4500); Lymphocytes Percent Auto 22.1 % (25-40); Mean Corpuscular HGB Conc 32.7 % (30-36); Mean Corpuscular Hemoglobin 29.1 PG (26-34); Mean Corpuscular Volume 88.8 fL (80-100); Monocytes Absolute Auto 500 /uL (0-900); Monocytes Percent Auto 8.3 % (3-14); Neutrophils Absolute Auto 4300 /uL (1500-7000); Neutrophils Percent Auto 65.8 % (50-75); Platelet Count 210 X10^3/uL (150-400); Red Blood Cell Count 5.17 X10^6/uL (4.0-5.2); Red Cell Distribution Width 14.3 % (11.6-14.8); White Blood Cell Count 6.5 X10^3/uL (4.5-11.0)
[2023-01-24 19:28] LABS: Alanine Aminotransferase 23 IU/L (<35); Albumin Globulin Ratio 1.3 (1.0-2.8); Alkaline Phosphatase 113 U/L (38-126); Aspartate Aminotransferase 32 IU/L (14-36); BUN Creatinine Ratio 24.5 (6-22); Bilirubin Total 1.1 mg/dL (0.2-1.3); Blood Urea Nitrogen 24 mg/dL (7-17); Calcium 9.4 mg/dL (8.4-10.2); Carbon Dioxide 32 mmol/L (22-32); Chloride 101 mmol/L (98-107); Estimated Glomerular Filt Rate 58 mL/min (>60); Glucose 96 mg/dL (80-110); HEMOLYSIS 42 (0-50); Sodium 139 mmol/L (137-145)
[2023-01-24 21:02] LABS: Hemoglobin A1C% w Est Avg Glu 5.2 % (4.0-6.0)
== END ==
PROVIDERS: Family Provider Family Medicine; PCP Physician Assistant; Visit Provider Physician Assistant
DX: R60.0 Localized edema (principal); Z13.1 Encounter for screening for diabetes mellitus; N18.9 Chronic kidney disease, unspecified; I10 Essential (primary) hypertension
CPT/HCPCS: 80053; 83036; 85025

== ENCOUNTER → 2023-05-01 13:06 | Outpatient (CLI) | payer MEDICARE, OTHER, SELFPAY ==
[2023-05-01 19:57] LABS: Alanine Aminotransferase 24 IU/L (<35); Albumin 3.9 g/dL (3.5-5.0); Albumin Globulin Ratio 1.3 (1.0-2.8); Alkaline Phosphatase 96 U/L (38-126); Aspartate Aminotransferase 28 IU/L (14-36); BUN Creatinine Ratio 27.7 (6-22); Bilirubin Total 0.7 mg/dL (0.2-1.3); Blood Urea Nitrogen 33 mg/dL (7-17); Calcium 9.5 mg/dL (8.4-10.2); Carbon Dioxide 30 mmol/L (22-32); Chloride 103 mmol/L (98-107); Estimated Glomerular Filt Rate 46 mL/min (>60); Glucose 111 mg/dL (80-110); HEMOLYSIS < 15 (0-50); Potassium 4.1 mmol/L (3.4-5.1); Sodium 140 mmol/L (137-145); Total Protein 6.9 g/dL (6.3-8.2)
== END ==
PROVIDERS: Family Provider Family Medicine; PCP Physician Assistant; Visit Provider Physician Assistant
DX: N18.9 Chronic kidney disease, unspecified (principal)
CPT/HCPCS: 80053

== ENCOUNTER → 2023-08-19 10:17 | Outpatient (CLI) | payer MEDICARE, OTHER, SELFPAY ==
[2023-08-19 19:50] LABS: Alanine Aminotransferase 23 IU/L (<35); Albumin 4.1 g/dL (3.5-5.0); Albumin Globulin Ratio 1.5 (1.0-2.8); Alkaline Phosphatase 99 U/L (38-126); Aspartate Aminotransferase 27 IU/L (14-36); BUN Creatinine Ratio 26.9 (6-22); Bilirubin Total 0.9 mg/dL (0.2-1.3); Blood Urea Nitrogen 29 mg/dL (7-17); Calcium 10.3 mg/dL (8.4-10.2); Carbon Dioxide 26 mmol/L (22-32); Chloride 103 mmol/L (98-107); Estimated Glomerular Filt Rate 52 mL/min (>60); Globulin 2.8 g/dL (1.7-4.1); Glucose 100 mg/dL (80-110); HEMOLYSIS 16 (0-50); Potassium 4.2 mmol/L (3.4-5.1); Sodium 138 mmol/L (137-145); Total Protein 6.9 g/dL (6.3-8.2)
== END ==
PROVIDERS: Family Provider Family Medicine; PCP Family Medicine; Visit Provider Physician Assistant
DX: N18.9 Chronic kidney disease, unspecified (principal)
CPT/HCPCS: 80053

== ENCOUNTER → 2023-09-11 09:21 | Outpatient (CLI) | payer MEDICARE, OTHER, SELFPAY ==
[2023-09-11 20:08] LABS: Cholesterol 168 mg/dL (140-199); HDL Cholesterol 39 mg/dL (40-60); LDL Cholesterol Calculated 97 mg/dL (<100); Triglycerides 162 mg/dL (35-150); Uric Acid 8.1 mg/dL (2.5-6.2)
[2023-09-11 21:11] LABS: Creatinine Urine Random 123.2 mg/dL; Protein (Total) Urine Random 14 mg/dL (0-12); Protein Creatinine Ratio Urine 0.11 GRAM/24H
[2023-09-13 18:12] LABS: Free Kappa Lt Chains, Serum 30.4 mg/L (3.3-19.4); Free Lambda Lt Chains,Serum 22.1 mg/L (5.7-26.3)
[2023-09-14 12:08] LABS: Calcium 9.6 mg/dL (8.7-10.3); Parathyroid Hormone, Intact 46 pg/mL (15-65)
[2023-09-16 16:39] LABS: Albumin 3.6 g/dL (2.9-4.4); Alpha-1-Globulin 0.2 g/dL (0.0-0.4); Alpha-2-Globulin 0.8 g/dL (0.4-1.0); Gamma Globulin 1.2 g/dL (0.4-1.8); Globulin Total 3.2 g/dL (2.2-3.9); Protein, Total 6.8 g/dL (6.0-8.5)
== END ==
PROVIDERS: Family Provider Family Medicine; PCP Family Medicine; Visit Provider Family Medicine
DX: E83.52 Hypercalcemia (principal); I10 Essential (primary) hypertension; M25.50 Pain in unspecified joint; N18.9 Chronic kidney disease, unspecified; G62.9 Polyneuropathy, unspecified
CPT/HCPCS: 80061; 82306; 82310; 82570; 83883; 83970; 84155; 84156; 84165; 84550

== ENCOUNTER → 2023-11-26 13:20 | Outpatient (CLI) | payer MEDICARE, OTHER, SELFPAY ==
[2023-11-26 19:58] LABS: Alanine Aminotransferase 20 IU/L (<35); Albumin Globulin Ratio 1.3 (1.0-2.8); Alkaline Phosphatase 90 U/L (38-126); Aspartate Aminotransferase 27 IU/L (14-36); BUN Creatinine Ratio 29.4 (6-22); Bilirubin Total 0.8 mg/dL (0.2-1.3); Blood Urea Nitrogen 35 mg/dL (7-17); Calcium 9.9 mg/dL (8.4-10.2); Carbon Dioxide 27 mmol/L (22-32); Chloride 104 mmol/L (98-107); Estimated Glomerular Filt Rate 46 mL/min (>60); Globulin 3.1 g/dL (1.7-4.1); Glucose 100 mg/dL (80-110); HEMOLYSIS 17 (0-50); Potassium 4.4 mmol/L (3.4-5.1); Sodium 138 mmol/L (137-145); Total Protein 7.1 g/dL (6.3-8.2); Uric Acid 7.7 mg/dL (2.5-6.2)
== END ==
PROVIDERS: Family Provider Family Medicine; PCP Family Medicine; Visit Provider Family Medicine
DX: I10 Essential (primary) hypertension (principal); R60.0 Localized edema; N18.9 Chronic kidney disease, unspecified; E83.52 Hypercalcemia
CPT/HCPCS: 80053; 84550

== ENCOUNTER → 2024-01-27 14:10 | Outpatient (CLI) | payer MEDICARE, OTHER, SELFPAY ==
[2024-01-27 19:15] LABS: Add Manual Diff / Slide Review NO; Basophils Absolute Auto 0 /uL (0-100); Basophils Percent Auto 0.6 % (0-2); Eosinophils Absolute Auto 200 /uL (0-450); Eosinophils Percent Auto 2.7 % (2-4); Hematocrit 41.3 % (36-46); Hemoglobin 13.8 g/dL (12.0-16.0); Lymphocytes Absolute Auto 1500 /uL (1100-4500); Mean Corpuscular HGB Conc 33.3 % (30-36); Mean Corpuscular Hemoglobin 29.5 PG (26-34); Mean Corpuscular Volume 88.5 fL (80-100); Monocytes Absolute Auto 500 /uL (0-900); Monocytes Percent Auto 8.1 % (3-14); Neutrophils Absolute Auto 4500 /uL (1500-7000); Neutrophils Percent Auto 66.6 % (50-75); Platelet Count 226 X10^3/uL (150-400); Red Blood Cell Count 4.66 X10^6/uL (4.0-5.2); Red Cell Distribution Width 14.4 % (11.6-14.8); White Blood Cell Count 6.8 X10^3/uL (4.5-11.0)
[2024-01-27 19:34] LABS: BUN Creatinine Ratio 27.2 (6-22); Blood Urea Nitrogen 34 mg/dL (7-17); Calcium 9.9 mg/dL (8.4-10.2); Carbon Dioxide 28 mmol/L (22-32); Chloride 108 mmol/L (98-107); Estimated Glomerular Filt Rate 43 mL/min (>60); Glucose 81 mg/dL (80-110); HEMOLYSIS < 15 (0-50); Potassium 4.3 mmol/L (3.4-5.1); Sodium 141 mmol/L (137-145)
[2024-01-27 19:59] LABS: TSH w/ Reflex to FT4 2.61 uIU/mL (0.47-4.68)
== END ==
PROVIDERS: Family Provider Family Medicine; PCP Family Medicine; Visit Provider Family Medicine
DX: I10 Essential (primary) hypertension (principal); N18.31 Chronic kidney disease, stage 3a; E83.52 Hypercalcemia
CPT/HCPCS: 80048; 82330; 84443; 85025

== ENCOUNTER → 2024-04-14 13:00 | Outpatient (CLI) | payer MEDICARE, OTHER, SELFPAY ==
[2024-04-14 20:01] LABS: BUN Creatinine Ratio 34.6 (6-22); Blood Urea Nitrogen 44 mg/dL (7-17); Calcium 9.5 mg/dL (8.4-10.2); Carbon Dioxide 21 mmol/L (22-32); Chloride 109 mmol/L (98-107); Estimated Glomerular Filt Rate 42 mL/min (>60); Glucose 126 mg/dL (80-110); HEMOLYSIS < 15 (0-50); Potassium 4.5 mmol/L (3.4-5.1); Sodium 140 mmol/L (137-145)
== END ==
PROVIDERS: Family Provider Family Medicine; PCP Family Medicine; Visit Provider Family Medicine
DX: I10 Essential (primary) hypertension (principal)
CPT/HCPCS: 80048

== ENCOUNTER → 2024-05-18 11:02 | Outpatient (CLI) | payer MEDICARE, OTHER, SELFPAY ==
[2024-05-18 19:41] LABS: BUN Creatinine Ratio 28.9 (6-22); Blood Urea Nitrogen 37 mg/dL (7-17); Calcium 9.8 mg/dL (8.4-10.2); Carbon Dioxide 28 mmol/L (22-32); Chloride 108 mmol/L (98-107); Estimated Glomerular Filt Rate 42 mL/min (>60); Glucose 78 mg/dL (80-110); HEMOLYSIS 16 (0-50); Potassium 4.5 mmol/L (3.4-5.1); Sodium 141 mmol/L (137-145)
== END ==
PROVIDERS: Family Provider Family Medicine; PCP Family Medicine; Visit Provider Family Medicine
DX: I10 Essential (primary) hypertension (principal); N18.9 Chronic kidney disease, unspecified
CPT/HCPCS: 80048

== ENCOUNTER → 2024-08-17 11:54 | Outpatient (CLI) | payer MEDICARE, OTHER, SELFPAY ==
[2024-08-17 19:20] LABS: Hematocrit 38.2 % (36-46); Hemoglobin 12.8 g/dL (12.0-16.0); Mean Corpuscular HGB Conc 33.4 % (30-36); Mean Corpuscular Hemoglobin 29.7 PG (26-34); Mean Corpuscular Volume 89.2 fL (80-100); Platelet Count 251 X10^3/uL (150-400); Red Blood Cell Count 4.29 X10^6/uL (4.0-5.2); Red Cell Distribution Width 14.9 % (11.6-14.8); White Blood Cell Count 6.7 X10^3/uL (4.5-11.0)
[2024-08-17 19:30] LABS: Albumin 3.7 g/dL (3.5-5.0); BUN Creatinine Ratio 22.7 (6-22); Blood Urea Nitrogen 29 mg/dL (7-17); Calcium 9.8 mg/dL (8.4-10.2); Carbon Dioxide 24 mmol/L (22-32); Chloride 106 mmol/L (98-107); Estimated Glomerular Filt Rate 42 mL/min (>60); Glucose 92 mg/dL (80-110); HEMOLYSIS 16 (0-50); Magnesium 1.3 mg/dL (1.6-2.3); Phosphorous 3.7 mg/dL (2.8-4.1); Potassium 4.4 mmol/L (3.4-5.1); Sodium 139 mmol/L (137-145); Uric Acid 5.9 mg/dL (2.5-6.2)
[2024-08-17 20:11] LABS: Appearance Urine UA CLEAR; Bilirubin Urine UA NEGATIVE (NEGATIVE); Color Urine UA YELLOW; Glucose Urine UA NEGATIVE (Negative); Ketones Urine UA NEGATIVE (NEGATIVE); Leukocyte Esterase Urine UA TRACE (NEGATIVE); Nitrite Urine UA NEGATIVE (Negative); Occult Blood Urine UA NEGATIVE (Negative); Protein Urine UA NEGATIVE (Negative); Urobilinogen Urine UA 0.2 E.U./dL (0.2)
[2024-08-17 20:14] LABS: Urine Volume Low Vol <10mL (spun)
[2024-08-17 20:18] LABS: Bacteria Urine Moderate (10-30); Culture Indicated Urine Specimen Cultured; RBC Urine None Seen (0-5/HPF); Squamous Epithelial Cell Urine None Seen (0-5/HPF); WBC Urine 1-5/HPF (0-5/HPF)
[2024-08-17 20:38] LABS: Creatinine Urine Random 78.06 mg/dL; Protein (Total) Urine Random 10 mg/dL (0-12); Protein Creatinine Ratio Urine 0.12 GRAM/24H
[2024-08-19 08:11] LABS: Parathyroid Hormone Int 33 pg/mL (15-65)
[2024-08-24 14:09] LABS: Albumin 3.1 g/dL (2.9-4.4); Alpha-1-Globulin 0.2 g/dL (0.0-0.4); Alpha-2-Globulin 0.8 g/dL (0.4-1.0); Gamma Globulin 1.3 g/dL (0.4-1.8); Globulin Total 3.3 g/dL (2.2-3.9); Protein, Total 6.4 g/dL (6.0-8.5)
== END ==
PROVIDERS: Family Provider Family Medicine; PCP Family Medicine; Visit Provider Internal Medicine Nephrology
DX: N18.32 Chronic kidney disease, stage 3b (principal)
CPT/HCPCS: 80069; 81001; 82570; 83735; 83970; 84155; 84156; 84165; 84550; 85027; 87077; 87086; 87186

== ENCOUNTER → 2024-09-22 11:49 | Outpatient (CLI) | payer MEDICARE, OTHER, SELFPAY ==
--- NOTE | 2024-09-22 11:51 | DI.US.S_ITS ---
PROCEDURE: US RENAL COMPLETE INDICATIONS: CKD 3 b TECHNIQUE: Real-time scanning was performed of the kidneys and bladder, with image documentation. COMPARISON: None. FINDINGS: Kidneys: Kidneys are normal in size. Right kidney measures 14.5 cm long; left kidney measures 11.6 cm long. Renal cortical echotexture is normal. No hydronephrosis or nephrolithiasis. No suspicious solid mass lesions. There are multiple left simple cysts and single large right simple cyst measuring up to 7.6 cm. Bladder: Bladder is not distended on prevoid images. Bilateral ureteral jets not visualized. Miscellaneous: No free pelvic fluid. IMPRESSION: Bilateral simple renal cysts. No nephrolithiasis or hydronephrosis. Approved by: Cassie Rehman M.D.,Ph.D. on 09/23/2024 at 2:00
== END ==
LOC: US 11:50
PROVIDERS: Family Provider Family Medicine; PCP Family Medicine; Referring Provider Family Medicine; Visit Provider Family Medicine
DX: N18.32 Chronic kidney disease, stage 3b (principal); N28.1 Cyst of kidney, acquired
CPT/HCPCS: 76770

== ENCOUNTER → 2025-01-04 09:50 | Outpatient (CLI) | payer MEDICARE, OTHER, SELFPAY ==
[2025-01-04 19:24] LABS: Alanine Aminotransferase 21 IU/L (<35); Albumin 4.2 g/dL (3.5-5.0); Albumin Globulin Ratio 1.4 (1.0-2.8); Alkaline Phosphatase 101 U/L (38-126); Aspartate Aminotransferase 28 IU/L (14-36); BUN Creatinine Ratio 27.3 (6-22); Bilirubin Total 0.8 mg/dL (0.2-1.3); Blood Urea Nitrogen 35 mg/dL (7-17); Calcium 10.1 mg/dL (8.4-10.2); Carbon Dioxide 27 mmol/L (22-32); Chloride 105 mmol/L (98-107); Cholesterol 170 mg/dL (140-199); Estimated Glomerular Filt Rate 42 mL/min (>60); Globulin 3.1 g/dL (1.7-4.1); Glucose 98 mg/dL (80-110); HDL Cholesterol 46 mg/dL (40-60); HEMOLYSIS 16 (0-50); LDL Cholesterol Calculated 96 mg/dL (<100); Magnesium 1.9 mg/dL (1.6-2.3); Potassium 4.4 mmol/L (3.4-5.1); Sodium 138 mmol/L (137-145); Total Protein 7.3 g/dL (6.3-8.2); Triglycerides 139 mg/dL (35-150); Uric Acid 6.2 mg/dL (2.5-6.2)
[2025-01-04 19:51] LABS: Thyroid Stimulating Hormone 3.81 uIU/mL (0.47-4.68)
== END ==
PROVIDERS: Family Provider Family Medicine; PCP Family Medicine; Visit Provider Family Medicine
DX: I12.9 Hypertensive chronic kidney disease with stage 1 through stage 4 chronic kidney disease, or unspecified chronic kidney disease (principal); N18.32 Chronic kidney disease, stage 3b; M10.9 Gout, unspecified; Z13.6 Encounter for screening for cardiovascular disorders; Z13.29 Encounter for screening for other suspected endocrine disorder
CPT/HCPCS: 80053; 80061; 83735; 84443; 84550